=== PATIENT | female | born 1995 | race Caucasian/White ===

== ENCOUNTER 2019-06-20 18:15 | Inpatient (IN) | payer MEDICARE, MEDICAID, SELFPAY ==
--- NOTE | ~2019-06-20 | XR_ITS ---
EXAMINATION: XR femur LT min 2V, XR tibia fibula LT 2V DATE: 06/20/2019 20:52 INDICATION: Left lower leg and knee pain post fall TECHNIQUE: 1. Overlapping proximal and distal, AP and lateral views of the left femur were obtained. 2. AP and lateral views of the left tibia and fibula were obtained. COMPARISON: None FINDINGS: The proximal left femur at the left hip is obscured due to patient body habitus but appeared unremark able in the prior CT of the pelvis. Bone alignment is normal. No fracture. Joint spaces appear unrem arkable. No knee or ankle joint effusions. Subcutaneous edema, skin thickening and numerous dystrophi c soft tissue calcifications along the anterior medial aspect of the lower leg which can be seen with chronic venous stasis. IMPRESSION: No acute osseous abnormality at the left upper or lower leg. Reviewed, dictated and finalized at location A. ORTHINESS INSPECTOR IMPRESSION: No acute osseous abnormality at the left upper or lower leg.
--- NOTE | ~2019-06-20 | XR_ITS ---
EXAMINATION: XR chest 2V DATE: 06/23/2019 13:24 INDICATION: Elevated BNP TECHNIQUE: Frontal and lateral views of the chest are obtained COMPARISON: 06/19/2010 FINDINGS: The lungs are free of acute opacities. There is no pleural effusion or pneumothorax. Cardio megaly is noted. There is mild thoracic spondylosis. IMPRESSION: 1. Cardiomegaly. Reviewed, dictated and finalized at location A. ORDER SCHEDULER IMPRESSION: 1. Cardiomegaly.
--- NOTE | ~2019-06-20 | CT_ITS ---
EXAMINATION: CT pelvis wo con DATE: 06/20/2019 20:52 INDICATION: Left leg pain post fall TECHNIQUE: High resolution computed tomography (CT) of the pelvis was performed without intravenous c ontrast. Additional sagittal and coronal reconstructions were performed. Automated exposure control a nd iterative reconstruction technique were employed. The dose-length product was 1347.57 mGy-cm. COMPARISON: None FINDINGS: Chronic fractures at the posterior right 11th and bilateral 12th ribs. No other fractures identified. Evaluation of fine bone detail and sensitivity for nondisplaced fracture in the abdomen and pelvis i s however mildly limited by quantum mottle resulting from patient body habitus. Mild lumbar dextrocur vature. Vertebral body and disc heights are normal. Bilateral hip and sacroiliac joint spaces are nor mal. T-shaped IUD appears more caudally positioned than typical within the lower uterine segment of t he anteverted uterus. Gallbladder, bilateral kidneys and visualized portions of the liver, spleen, pa ncreas and bilateral adrenal glands are normal. Bowels are unremarkable. Extensive body wall edema th roughout the abdomen and pelvis. IMPRESSION: 1. No evident acute osseous abnormality. Sensitivity for nondisplaced fracture mildly decreased by qu antum mottle resulting from patient body habitus. 2. IUD which appears more caudally positioned than typical within the lower uterine segment. Reviewed, dictated and finalized at location A. RY SALES CLERK IMPRESSION: 1. No evident acute osseous abnormality. Sensitivity for nondisplaced fracture mildly decreased by quantum mottle resulting from patient body habitus. 2. IUD which appears more caudally positioned than typical within the lower oskar rine segment.
--- NOTE | 2019-06-20 18:33 | ED.FALL ---
HPI - Fall General Chief Complaint: Extremity Injury, Lower Stated Complaint: AMB Time Seen by Provider: 06/20/19 18:20 Source: patient Mode of arrival: ambulatory Limitations: no limitations History of Present Illness HPI Narrative: 24-year-old woman comes in by EMS today complaining of left leg pain. She states that she slipped on the ice and fell. She does not know how long she was lying there. She denies numbness or tingling. She denies loss of consciousness, head injury or arm or right leg pain. Related Data Home Medications Medication Instructions Recorded Confirmed albuterol sulfate 2 puff INHALATION Q4-6H PRN 06/20/19 06/20/19 amlodipine 10 mg PO DAILY 06/20/19 06/20/19 desmopressin 0.5 mg PO BID 06/20/19 06/20/19 ergocalciferol (vitamin D2) 50,000 unit PO 2XW 06/20/19 06/20/19 insulin aspart U-100 [Novolog 12 unit SUBCUT TIDWM 06/20/19 06/20/19 Flexpen U-100 Insulin] insulin glargine [Lantus Solostar 20 unit SUBCUT BID 06/20/19 06/20/19 U-100 Insulin] levothyroxine 125 mcg PO DAILY 06/20/19 06/20/19 levothyroxine 300 mcg PO DAILY 06/20/19 06/20/19 lisinopril 40 mg PO DAILY 06/20/19 06/20/19 mifepristone [Korlym] 300 mg PO DAILY 06/20/19 06/20/19 potassium chloride 20 meq PO BID 06/20/19 06/20/19 rosuvastatin 40 mg PO DAILY 06/20/19 06/20/19 sumatriptan succinate 25 mg PO PRN PRN 06/20/19 06/20/19 torsemide 40 mg PO DAILY 06/20/19 06/20/19 Allergies Allergy/AdvReac Type Severity Reaction Status Date / Time ceftriaxone [From Rocephin] Allergy Severe Other Verified 06/20/19 19:23 linezolid Allergy Unknown Other Verified 06/20/19 19:23 vancomycin Allergy Unknown Other Verified 06/20/19 19:23 Review of Systems Constitutional: Constitutional: Denies chills, Denies fever(s) and Reports weakness ENT: Denies dysphagia, Denies nasal congestion and Denies sore throat Cardiovascular: Cardiovascular: Denies chest pain and Denies radiating jaw, neck or arm pain Respiratory: Respiratory: Denies cough, Denies dyspnea and Denies wheezing Gastrointestinal: Gastrointestinal: Denies abdominal pain, Denies diarrhea, Denies nausea and Denies vomiting Genitourinary: Genitourinary: Denies hematuria and Denies dysuria Integumentary/Breasts: Skin/Breast: Denies pruritus, Denies erythema and Denies rash Neurologic: Denies vertigo, Denies dizziness and Denies syncope Hematologic/Lymphatic: Hematologic/Lymphatic: Denies easy bleeding and Denies easy bruising Allergic/Immunologic: Allergic/Immunologic: Denies lip swelling and Denies wheezing PMFSH Past Medical History Medical History (Updated 06/20/19 @ 21:24 by Ricco Santamaria MD) Bipolar 1 disorder CHF (congestive heart failure) COPD (chronic obstructive pulmonary disease) [place] disease Hypertension Hypopituitarism Hypothyroidism Lymphedema of both lower extremities Migraine Obesity On home oxygen therapy Osteomyelitis right leg Type 2 diabetes mellitus Surgical History Surgical History History of abdominal surgery Monsectomy per patient History of hypophysectomy x 2 S/P panniculectomy S/P tonsillectomy and adenoidectomy Status post incision and drainage Right leg abscess and osteomyelitis Social History Social History Smoking status: Former smoker Alcohol intake: never Substance use: never Living arrangements: with family Exam Const: General: healthy appearing and alert Nutritional Appearance: obese Orientation/consciousness: patient oriented x3 Other: moderate acute pain distress Resp: Effort & Inspection: normal respiratory effort Auscultation: clear to auscultation bilaterally, no rales, no rhonchi and no wheezes Cardio: Rate: regular rate Rhythm: regular rhythm Heart sounds: no murmurs GI: Inspection: non-distended Auscultation: normal bowel sounds Other: No tenderness Skin: General skin exam: nor
[2019-06-20 18:35] VITALS: BP 190/104; PULSE 101; RESP 20; TEMP 36.5; O2SAT 95
[2019-06-20 19:07] LABS: Basophils Absolute Auto 0.03 K/mm3 (0.00-0.10); Basophils Percent Auto 0.3 % (0.0-1.0); Eosinophils Absolute Auto 0.05 K/mm3 (0.02-0.50); Eosinophils Percent Auto 0.5 % (1.0-6.0); Hematocrit 44.2 % (35.0-49.0); Hemoglobin 12.7 g/dL (12.0-15.0); Immature Granulocyte Absolute 0.04 K/mm3 (0.00-0.00); Immature Granulocyte Percent A 0.4 % (0.0-0.0); Lymphocytes Absolute Auto 0.83 K/mm3 (1.10-4.50); Lymphocytes Percent Auto 8.1 % (18.0-42.0); Mean Corpuscular HGB Conc 28.7 g/dL (32.0-36.0); Mean Corpuscular Hemoglobin 26.1 pg (27.0-31.0); Mean Corpuscular Volume 90.9 fL (78.0-102.0); Mean Platelet Volume 10.7 fl (9.2-11.8); Monocytes Absolute Auto 0.46 K/mm3 (0.10-0.90); Monocytes Percent Auto 4.5 % (2.0-11.0); Neutrophils Absolute Auto 8.8 K/mm3 (1.7-7.2); Neutrophils Percent Auto 86.2 % (50.0-70.0); Platelet Count Result 280 K/mm3 (150-420); Red Blood Count 4.86 M/mm3 (4.20-5.40); Red Cell Distribution Width 16.9 % (11.6-14.4); White Blood Count 10.2 K/mm3 (4.8-10.8)
[2019-06-20] MEDS: ONDANSETRON INJ 4 MG/2 ML VIAL IV PUSH (19:07)
[2019-06-20] MEDS: HYDROMORPHONE HCL 2 MG/ML VIAL 0.5 MG IV PUSH ×2 (19:08→19:59)
[2019-06-20 19:44] LABS: Alanine Aminotransferase 7 U/L (14-59); Albumin Level 3.4 g/dL (3.4-5.0); Alkaline Phosphatase 108 U/L (46-116); Anion Gap 6.3 mmol/L (7-16); Aspartate Amino Transferase 15 U/L (15-37); Bilirubin,Total 1.5 mg/dL (0.00-1.00); Blood Urea Nitrogen 4 mg/dL (7-18); Calcium 8.6 mg/dL (8.5-10.1); Carbon Dioxide 44 mmol/L (21-32); Chloride 102 mmol/L (98-108); Creatine Kinase 124 U/L (26-192); Estimated CRCL calculation 130 ml/min; Estimated Glomerular Filt Rate > 60; Glucose 387 mg/dL (70-99); Osmolality Calculated 322 mOsm/kg (285-295); Sodium 150 mmol/L (136-145)
[2019-06-20 19:49] LABS: Potassium 2.3 mmol/L (3.5-5.1)
--- NOTE | 2019-06-20 19:49 | PC.NURSE ---
K+ 2.[address] Santamaria aware.
[2019-06-20 19:50] LABS: BNP 782 pg/mL (0-100)
[2019-06-20 19:50] LABS: Beta HCG Quantitative < 1.00 mIU/mL (0-6)
[2019-06-20 19:53] LABS: Appearance Urine Clear (Clear); Bilirubin Urine Negative (Negative); Color Urine Yellow (Yellow); Glucose Urine UA 3+ (Negative); Ketones Urine Negative (Negative); Leukocyte Esterase Ur Negative (Negative); Nitrate Urine Negative (Negative); Protein Urine Trace (Negative); Urobilinogen Urine 0.2 mg/dL (0.2-1.0); pH Urine 7.5 (5.0-8.0)
[2019-06-20 19:58] LABS: Add Urine Microscopic? YES; Blood Urine Trace (Negative)
[2019-06-20 19:59] LABS: Bacteria Urine Trace /hpf; RBC Urine 0-2 /hpf (0-2); Squamous Epithelial Cell Urine Rare /hpf (Few); WBC Urine 0-3 /hpf (0-3)
[2019-06-20 20:01] VITALS: BP 184/99
[2019-06-20 20:43] VITALS: PULSE 80; RESP 20; O2SAT 100
--- NOTE | 2019-06-20 21:18 | ECG_ITS ---
Measurements Intervals [place] Rate: 84 P: 33 RI: 179 QRS: -54 QRSD: 173 T: -3 QT: 460 QTc: 547 Interpretive Statements SINUS RHYTHM RIGHT BUNDLE BRANCH BLOCK LEFT ANTERIOR FASCICULAR BLOCK ABNORMAL ECG Electronically Signed On 06-21-2019 10:31:24 LICENSED CHEMICAL SPRAY TECHNICIAN by Brown Barton D.O.
--- NOTE | 2019-06-20 21:20 | PC.NURSE ---
Dr Santamaria at bedside.
[2019-06-20 21:32] VITALS: BP 186/96; PULSE 83; RESP 20; O2SAT 100
--- NOTE | 2019-06-20 21:33 | PC.NURSE ---
Pt and family aware of plan for admission. Verbalize understanding. Pt's mother left taking pt's belongings with her.
[2019-06-20 21:45] VITALS: PULSE 83
[2019-06-20] MEDS: KCL 20 MEQ/SW 100 ML 100 ML 25 MEQ IVPB (21:51)
--- NOTE | 2019-06-20 21:52 | PC.NURSE ---
Placed on CM, SR 81. KCL infusion started, infusing at 25ml/hr (5meq/hr) d/t c/o burning.
[2019-06-20 22:07] VITALS: BP 176/90; PULSE 84; RESP 20; O2SAT 100
[2019-06-20 22:08] LABS: Magnesium 1.6 mg/dL (1.8-2.4); Phosphorus 2.2 mg/dL (2.6-4.7)
[2019-06-20 22:24] LABS: Potassium Urine Random 5.6 mmol/L (12-62)
[2019-06-20 23:51] VITALS: BMI 73.0
[2019-06-21] VITALS (9 sets, daily range): BP systolic 96–177; BP diastolic 49–93; PULSE 71–98; RESP 18–20; TEMP 36.1–36.8; O2SAT 94–98
--- NOTE | 2019-06-21 00:37 | PC.NURSE ---
Raciel duggan from ER .Pt on o2 @ 2L per nc. Uses o2 @ home @ 2LPt was up to BSC using walker, assist of one. Pt voided lg amt.
--- NOTE | 2019-06-21 00:44 | PC.NURSE ---
Telemetry sinus rythum.
--- NOTE | 2019-06-21 01:25 | PC.NURSE ---
K rider infusion ended @ this time.
[2019-06-21] MEDS: MAGNESIUM SULF 2 GM/WATER 50ML 2 GM/50 ML BAG IVPB (01:38)
--- NOTE | 2019-06-21 02:08 | PC.NURSE ---
Mag rider continues. Pt voided lg amt in BSC..Assisted with legs back into bed.
[2019-06-21] MEDS: SODIUM CHLORIDE 0.45% 1,000 ML 75 ML IV CONT (03:05)
--- NOTE | 2019-06-21 03:12 | PC.NURSE ---
0.45 NS up @ 75 ml hr @ this time.
--- NOTE | 2019-06-21 03:24 | PC.NURSE ---
Sleeping, awakened for IV fluids. VS taken. O2 continues.
--- NOTE | 2019-06-21 03:31 | PC.NURSE ---
Reji Jennings called to clarify medication dosages and availability of certain medications.
[2019-06-21 05:23] LABS: Basophils Absolute Auto 0.03 K/mm3 (0.00-0.10); Basophils Percent Auto 0.4 % (0.0-1.0); Eosinophils Absolute Auto 0.03 K/mm3 (0.02-0.50); Eosinophils Percent Auto 0.4 % (1.0-6.0); Hemoglobin 10.1 g/dL (12.0-15.0); Immature Granulocyte Absolute 0.03 K/mm3 (0.00-0.00); Immature Granulocyte Percent A 0.4 % (0.0-0.0); Lymphocytes Absolute Auto 0.74 K/mm3 (1.10-4.50); Lymphocytes Percent Auto 10.5 % (18.0-42.0); Mean Corpuscular HGB Conc 28.9 g/dL (32.0-36.0); Mean Corpuscular Hemoglobin 26.9 pg (27.0-31.0); Mean Corpuscular Volume 93.1 fL (78.0-102.0); Mean Platelet Volume 10.5 fl (9.2-11.8); Monocytes Absolute Auto 0.43 K/mm3 (0.10-0.90); Monocytes Percent Auto 6.1 % (2.0-11.0); Neutrophils Absolute Auto 5.8 K/mm3 (1.7-7.2); Neutrophils Percent Auto 82.2 % (50.0-70.0); Platelet Count Result 244 K/mm3 (150-420); Red Blood Count 3.76 M/mm3 (4.20-5.40)
[2019-06-21 05:41] LABS: Albumin Level 2.7 g/dL (3.4-5.0); Alkaline Phosphatase 88 U/L (46-116); Aspartate Amino Transferase 16 U/L (15-37); Bilirubin,Total 1.1 mg/dL (0.00-1.00); Blood Urea Nitrogen 3 mg/dL (7-18); Calcium 7.8 mg/dL (8.5-10.1); Chloride 107 mmol/L (98-108); Estimated CRCL calculation 152 ml/min; Estimated Glomerular Filt Rate > 60; Glucose 341 mg/dL (70-99); Total Protein 5.6 g/dL (6.4-8.2)
[2019-06-21 05:52] LABS: Alanine Aminotransferase 6 U/L (14-59); Osmolality Calculated 323 mOsm/kg (285-295); Sodium 152 mmol/L (136-145)
[2019-06-21 05:53] LABS: Magnesium 1.9 mg/dL (1.8-2.4)
[2019-06-21 05:55] LABS: Anion Gap 2.39999 mmol/L (7-16); Carbon Dioxide > 45 mmol/L (21-32); Potassium 2.4 mmol/L (3.5-5.1)
[2019-06-21] MEDS: LEVOTHYROXINE SODIUM 100 MCG TABLET 425 MCG PO (06:42)
--- NOTE | 2019-06-21 06:52 | PC.NURSE ---
0610 Dr. Santamaria notified of pt's critical lab value. New order received and noted.
--- NOTE | 2019-06-21 06:57 | PC.NURSE ---
Potassium Miles bag #1 up @ this time per order. Pt getting up to BSC to void. Help with legs back into bed.
[2019-06-21] MEDS: KCL 20 MEQ/SW 100 ML 100 ML 50 MEQ IVPB ×2 (07:00→09:01)
--- NOTE | 2019-06-21 07:03 | PC.NURSE ---
potassium rider infusing, site clear
[2019-06-21 08:03] LABS: Glucose Point of Care 316 (65-105)
[2019-06-21] MEDS: POTASSIUM CHLORIDE 20 MEQ TABLET 40 MEQ PO ×2 (08:43→17:16)
[2019-06-21] MEDS: ENOXAPARIN 40 MG/0.4 ML SYRINGE SUB-Q (08:43)
[2019-06-21] MEDS: lisinopriL 20 MG TABLET 40 MG PO (08:44)
[2019-06-21] MEDS: ROSUVASTATIN 10 MG TABLET 40 MG PO (08:44)
[2019-06-21] MEDS: MAGNESIUM OXIDE 400 MG TABLET PO (08:45)
[2019-06-21] MEDS: AMLODIPINE BESYLATE 5 MG TABLET 10 MG PO (08:45)
--- NOTE | 2019-06-21 09:00 | PC.NURSE ---
K rider continues to infuse, ate well for breakfast
[2019-06-21] MEDS: HYDROCORTISONE 10 MG TABLET 100 MG PO (09:06)
[2019-06-21] MEDS: INSULIN GLARGINE (*BKC) 100 UNITS/ML 20 UNITS SUB-Q (09:11)
--- NOTE | 2019-06-21 10:32 | PC.NURSE ---
due to leg edema needs assist to move legs, does use over head trapeze to assist in turning and moving in bed, mom brought home medications in and sent to pharmacy for verification, k rider infusing
[2019-06-21] MEDS: POTASSIUM PHOS,M-BASIC-D-BASIC 40 MMOL in SODIUM CHLORIDE 0.9% IV 250 ML 62.5 MMOL IVPB (10:59)
--- NOTE | 2019-06-21 11:10 | PC.NURSE ---
potassium phosphorus infusion begun, resting in bed, denies needs
--- NOTE | 2019-06-21 11:33 | PC.NURSE ---
patient got self up and out of bed, used walker to stable her gait and did pivot transfer on own from bed to commode then to chair, used 2 assist to get recliner chair to legs elevated position, call light in reach
[2019-06-21 12:08] LABS: Glucose Point of Care 319 (65-105)
--- NOTE | 2019-06-21 12:19 | PC.NURSE ---
in chair eating lunch, administered own insulin with own pen from home, IV site burning and slight edema noted, no redness, discontinued and new access started to left antecubital space, fluids and potassium phosphate continue at this time
--- NOTE | 2019-06-21 12:28 | PM.IMHP ---
H&P: HPI History of Present Illness Chief complaint: AMB Narrative: Rosa Sullivan is a 24 year old female That presented to ED with left lower leg the pain post fall. Patient has past medical history of congestive heart failure, COPD, Syeda's disease, hypertension, hypopituitary is [place], hypothyroidism, lymphedema of both lower extremities, migraines, obesity, continue his home oxygen, osteomyelitis of the right leg and type 2 diabetes mellitus. According to the patient yesterday she was attempting to go in her home via ramp and fell on ice. Her mother attempted to stand her up and was unable to. Patient was The ground greater than 45 minutes . EMS was called and patient was transported to e.d.. While in the emergency room patient was given Mag supplement riders for a Mag of 1.6, p.o. potassium, potassium phosphate and a KCl rider for a potassium of 2.3 and a phosphorus of 2.2. Vital signs are 36.4, 82, 18, 95% on 2 L nasal cannula blood pressure 180/70. Imaging of the tibial fibula and femur were negative for fracture. Patient does have a history of cellulitis, patient's left lower extremity is edematous, warm and tender to touch, and erythematous. Patient denies SOB, CP, palpitation, extremity numbness, lightheadness, dizziness, constipation, diarrhea, or chills or fever. patient's calender operator Dr. Morse records have been requested from [facility] to clear by diagnosis and medication. Review of Systems Constitutional: Constitutional: Denies chills, Reports fatigue and Denies fever(s) Cardiovascular: Cardiovascular: Denies chest pain, Denies chest pain at rest, Reports pedal edema ( left lower extremity), Denies lightheadedness and Denies dyspnea Respiratory: Respiratory: Denies chest congestion, Denies cough, Denies pain with cough, Denies dyspnea, Denies wheezing and Reports other ( uses continuous home O2) Gastrointestinal: Gastrointestinal: Denies change in bowel habits, Denies constipation, Denies GI cramping, Denies excessive flatus, Denies heartburn, Denies diarrhea, Denies nausea and Denies vomiting Genitourinary: Genitourinary: Denies hematuria Musculoskeletal: Musculoskeletal: Reports arthralgias ( left lower extremity), Reports joint swelling ( left lower extremity), Denies neck pain, Denies numbness, Denies stiffness and Denies tingling Integumentary/Breasts: Skin/Breast: Reports swelling ( left lower extremity), Reports erythema ( left lower extremity and abdomen) and Reports other ( history of cellulitis to lower extremities) Neurologic: Denies confusion, Denies vertigo, Denies dizziness, Denies syncope, Denies numbness and Denies weakness Psychiatric: Psychiatric: Reports no additional psychiatric complaints and Denies anxiety PMFSH Past Medical History Medical History (Updated 06/21/19 @ 13:33 by CLEVELAND Robertson-C) Bipolar 1 disorder CHF (congestive heart failure) COPD (chronic obstructive pulmonary disease) [place] disease Hypertension Hypopituitarism Hypothyroidism Lymphedema of both lower extremities Migraine Obesity On home oxygen therapy Osteomyelitis right leg Type 2 diabetes mellitus Surgical History Surgical History History of abdominal surgery Monsectomy per patient History of hypophysectomy x 2 S/P panniculectomy S/P tonsillectomy and adenoidectomy Status post incision and drainage Right leg abscess and osteomyelitis Family History Family History (Updated 06/20/19 @ 23:51 by Viki Herron LPN) Mother Cerebrovascular accident Social History Social History Smoking status: Never smoker Second hand tobacco smoke exposure: Yes Alcohol intake: never Substance use: never Substance use type: does not use Living arrangements: with family Gender identity (if verbalized by the patient): Female Spiritual care concerns: No Agr
--- NOTE | 2019-06-21 13:00 | PC.NURSE ---
In chair, fluids infusing with potassium phosphate, denies needs, coloring in adult color book
--- NOTE | 2019-06-21 14:10 | PC.NURSE ---
Assisted back to bed from chair, denies need to void, able to get to standing position and take steps from chair to bed, did need assist to pull self up to top of bed, maxi slide used, tolerated well, 2 person assist needed, telemetry SR,
--- NOTE | 2019-06-21 15:00 | PC.NURSE ---
Resting in bed, using trapeze to adjust self in bed, call light in reach and taking oral fluids well, saline lock discontinued due to infiltration, lack of IV site to pick from, will not stick again until evening lab completed, abx changed to oral, awaiting pharmacy approval
--- NOTE | 2019-06-21 16:00 | PCDIET ---
Napping at intervals, able to use call light and drinks orally without issues, uses phone for games
--- NOTE | 2019-06-21 17:00 | PC.NURSE ---
Wants to remain in bed for dinner, denies need to void, lab to draw for repeat potassium and phosphate levels, awaiting results,
[2019-06-21 17:02] LABS: Glucose Point of Care 107 (65-105)
[2019-06-21] MEDS: CLINDAMYCIN HCL 150 MG CAP 450 MG PO (17:16)
[2019-06-21 17:31] LABS: Phosphorus 3.3 mg/dL (2.6-4.7)
[2019-06-21 17:39] LABS: Anion Gap 7.2 mmol/L (7-16); Blood Urea Nitrogen 5 mg/dL (7-18); Calcium 8.3 mg/dL (8.5-10.1); Carbon Dioxide 40 mmol/L (21-32); Chloride 105 mmol/L (98-108); Estimated CRCL calculation 135 ml/min; Estimated Glomerular Filt Rate > 60; Glucose 79 mg/dL (70-99); Osmolality Calculated 304 mOsm/kg (285-295); Potassium 3.2 mmol/L (3.5-5.1); Sodium 149 mmol/L (136-145)
--- NOTE | 2019-06-21 17:48 | PC.NURSE ---
potassium level resulted, 3.2
--- NOTE | 2019-06-21 17:49 | PC.NURSE ---
notitied of current lab results. No new orders received.
--- NOTE | 2019-06-21 18:28 | PC.NURSE ---
Remains in chair at this time, telemetry sinus rhythm, no new orders at this time
--- NOTE | 2019-06-21 19:20 | PC.NURSE ---
pt sitting in chair sleeping, easily aroused, denies any pain, belongings and call light within reach.
--- NOTE | 2019-06-21 20:00 | PC.NURSE ---
pt assisted with recliner x2 staff, pt then using walker was able to ambulate to bed with contact guard assist, assisted pt with her legs into the bed then maxi slide, trapeze bar, and 2 assist to move up in bed. pt tolerated well all belongings and call light within reach.
[2019-06-21] MEDS: DOCUSATE SODIUM 100 MG CAPSULE PO (21:08)
[2019-06-21] MEDS: DESMOPRESSIN ACETATE 0.1 MG TABLET 0.5 MG PO (21:09)
--- NOTE | 2019-06-21 21:15 | PC.NURSE ---
pt has low blood glucose level of 53, hypoglycemia protocol followed, ticket broker notified
[2019-06-21 21:25] LABS: Glucose Point of Care 53 (65-105)
[2019-06-21 21:56] LABS: Glucose Point of Care 65 (65-105)
[2019-06-21 21:56] LABS: Glucose Point of Care 83 (65-105)
--- NOTE | 2019-06-21 22:00 | PC.NURSE ---
pt finished eating peanut butter and arnulfo crackers, reports feeling much better now, remains in bed, denies need to use bsc, belongings and call light within reach
--- NOTE | 2019-06-21 23:19 | PC.NURSE ---
pt sleeping, respirations even and regular, no evidence of distress noted, call light and belongings within reach
[2019-06-22] VITALS (7 sets, daily range): BP systolic 96–133; BP diastolic 37–75; PULSE 69–81; RESP 18–20; TEMP 36.4–37; O2SAT 96–100
[2019-06-22] MEDS: CLINDAMYCIN HCL 150 MG CAP 450 MG PO ×5 (00:30→23:36)
--- NOTE | 2019-06-22 00:31 | PC.NURSE ---
pt placed on hover mat to assist with pt repositioning, 2 staff repositioned pt to right side, pt tolerated well, denies any other needs at this time, belongings and call light within reach
[2019-06-22 00:59] LABS: Glucose Point of Care 82 (65-105)
--- NOTE | 2019-06-22 02:14 | PC.NURSE ---
pt given saltine crackers and diet white soda for heartburn, advised if this doesn't help I could contact ERP for medication.
--- NOTE | 2019-06-22 03:05 | PC.NURSE ---
pt sleeping, respirations even and regular, no evidence of distress noted, call light and belongings within reach
--- NOTE | 2019-06-22 04:35 | PC.NURSE ---
pt vital signs obtained, lab at bedside, pt denies need to void, denies any other needs at this time
--- NOTE | 2019-06-22 05:20 | PC.NURSE ---
pt sleeping, respirations even and regular, no evidence of distress noted, call light and belongings within reach
[2019-06-22 05:36] LABS: Hematocrit 33.3 % (35.0-49.0); Hemoglobin 9.5 g/dL (12.0-15.0); Mean Corpuscular HGB Conc 28.5 g/dL (32.0-36.0); Mean Corpuscular Hemoglobin 26.7 pg (27.0-31.0); Mean Corpuscular Volume 93.5 fL (78.0-102.0); Mean Platelet Volume 10.9 fl (9.2-11.8); Platelet Count Result 295 K/mm3 (150-420); Red Blood Count 3.56 M/mm3 (4.20-5.40); Red Cell Distribution Width 17.3 % (11.6-14.4); White Blood Count 7.2 K/mm3 (4.8-10.8)
[2019-06-22 05:48] LABS: Blood Urea Nitrogen 7 mg/dL (7-18); Calcium 7.7 mg/dL (8.5-10.1); Carbon Dioxide 43 mmol/L (21-32); Chloride 107 mmol/L (98-108); Estimated CRCL calculation 120 ml/min; Estimated Glomerular Filt Rate 60; Glucose 88 mg/dL (70-99); Osmolality Calculated 309 mOsm/kg (285-295); Sodium 151 mmol/L (136-145)
[2019-06-22 05:51] LABS: Magnesium 1.9 mg/dL (1.8-2.4); Phosphorus 3.8 mg/dL (2.6-4.7)
[2019-06-22 05:55] LABS: D Dimer 0.37 mg/L (0.19-0.50)
[2019-06-22 05:58] LABS: BNP 238 pg/mL (0-100)
[2019-06-22] MEDS: LEVOTHYROXINE SODIUM 25 MCG TABLET PO (06:06)
[2019-06-22] MEDS: LEVOTHYROXINE SODIUM 100 MCG TABLET PO (06:07)
[2019-06-22 06:09] LABS: CRP 4.2 mg/dL (0.0-0.9)
--- NOTE | 2019-06-22 06:20 | PC.NURSE ---
pt assisted with walker, gait belt, 2 staff to bsc, then to standing scale, then to recliner, pt tolerated well, participated really well and only required contact guard after initially standing up.
--- NOTE | 2019-06-22 07:08 | PC.NURSE ---
In chair at this time, call light in reach, taking po fluids well
--- NOTE | 2019-06-22 07:15 | PCDIET ---
In chair, coloring, potassium level this am 3.0, no IV access at this time, taking oral fluids well, not urinating much, no change in appearance of left knee, bruising continues
[2019-06-22 07:31] LABS: Glucose Point of Care 89 (65-105)
--- NOTE | 2019-06-22 08:00 | PC.NURSE ---
Sitting in chair, eating breakfast, denies needs, takes po fluids well, scheduled for oral potassium at 0900
[2019-06-22] MEDS: INSULIN GLARGINE (*BKC) 100 UNITS/ML 20 UNITS SUB-Q (09:04)
[2019-06-22] MEDS: POTASSIUM CHLORIDE 20 MEQ PACKET (FOR LIQUID) 40 MEQ PO (09:04)
[2019-06-22] MEDS: CALCIUM CARBONATE (OSCAL) 500 MG TABLET PO (09:05)
[2019-06-22] MEDS: hydrALAZINE 5 MG TABLET PO (09:05)
[2019-06-22] MEDS: ROSUVASTATIN 10 MG TABLET 40 MG PO (09:06)
[2019-06-22] MEDS: DESMOPRESSIN ACETATE 0.1 MG TABLET 0.5 MG PO ×2 (09:07→21:00)
[2019-06-22] MEDS: AMLODIPINE BESYLATE 5 MG TABLET 10 MG PO (09:08)
[2019-06-22] MEDS: lisinopriL 20 MG TABLET 40 MG PO (09:08)
[2019-06-22] MEDS: POTASSIUM CHLORIDE 20 MEQ TABLET 40 MEQ PO ×2 (09:09→17:14)
[2019-06-22] MEDS: DOCUSATE SODIUM 100 MG CAPSULE PO ×2 (09:09→21:00)
[2019-06-22] MEDS: MAGNESIUM OXIDE 400 MG TABLET PO (09:09)
--- NOTE | 2019-06-22 09:40 | PC.NURSE ---
Stand by assist and use of walker, ambulatory to bathroom
[2019-06-22] MEDS: SPIRONOLACTONE 25 MG TABLET 50 MG PO (10:04)
--- NOTE | 2019-06-22 10:10 | PC.NURSE ---
Sitting on edge of bed, assisted in washing up, assisted to lay down, hover mat used for ease in lifting patient up in bed
--- NOTE | 2019-06-22 10:20 | P.PNCROSS_ITS ---
Event Note Event Note Event Note: Event note pertains to visit on 06/22/2019 For this patient encounter, I reviewed the KITCHEN AND COUNTER WORKER or PA documentation, treatment plan, and medical decision making; and I had [id number] time with this patient.\ Pt. with Cushingoid features, marked obesity. Has trouble walking far even with use of walker. Tender, red panus and left leg. Hypokalemia difficult to raise, loop diuretic likely contributing. Agree with continuing clindamycin, stopping loop diuretic, starting spironolact one, continuing potassium supplementation, and starting PT. Pt may need to be fully admitted; hospital management is indicated.
--- NOTE | 2019-06-22 11:10 | PC.NURSE ---
In bed with HOB elevated for comfort, legs elevated, denies needs at this time, pain medication working, knee continues to have some edema and bruising, no change in redness from yesterday noted, panus of abdomen is also red and edematous, states is not as swollen as it has been last couple days
[2019-06-22] MEDS: ERGOCALCIFEROL 50,000 UNIT CAPSULE 50000 UNITS PO (11:36)
[2019-06-22 11:41] LABS: Glucose Point of Care 105 (65-105)
--- NOTE | 2019-06-22 12:08 | PC.NURSE ---
eating lunch, no n/v, telemetry sr,
[2019-06-22 12:44] LABS: Albumin Level 2.8 g/dL (3.4-5.0)
--- NOTE | 2019-06-22 13:07 | PC.NURSE ---
sitting in bed, states having heart burn from clindamycin, notified
[2019-06-22] MEDS: CALCIUM CARBONATE (TUMS) 500 MG (200 MG ELEMENTAL) PO (13:16)
[2019-06-22] MEDS: PANTOPRAZOLE 40 MG TABLET PO ×2 (13:17→21:00)
--- NOTE | 2019-06-22 14:57 | PM.IMPN ---
Progress Note: A&P Assessment and Plan (1) Status post fall: Code(s): Z91.81 - History of falling <Luis HowellCLEVELAND See-C - Last Filed: 06/22/19 15:06> Status: Acute <Luis CisnerosCLEVELAND-C - Last Filed: 06/22/19 15:06> Assessment and Plan: - possibly is secondary to electrolyte imbalance vs cellulite - will correct the underlining condition. - consulted PT/OT <CLEVELAND Robertson-C - Last Filed: 06/22/19 15:06> (2) Cellulitis: Code(s): L03.90 - Cellulitis, unspecified <Ernestolilian LyndaCLEVELAND See-C - Last Filed: 06/22/19 15:06> Status: Acute <Ernestolilian LyndaCLEVELAND See-C - Last Filed: 06/22/19 15:06> Assessment and Plan: - patient has a history of cellulitis - D-dimer within normal limits - continue clindamycin - CRP elevated - repeat CBC BMP in a.m. - erythema outline to monitor site, has not worsened - patient WBC within normal limits will recheck in the a.m. <ErnestoCLEVELAND Escamilla-C - Last Filed: 06/22/19 15:06> (3) Hypokalemia: Code(s): E87.6 - Hypokalemia <Ernestolilian LyndaCLEVELAND See-C - Last Filed: 06/22/19 15:06> Status: Acute <CLEVELAND Robertson-C - Last Filed: 06/22/19 15:06> Assessment and Plan: - remain decreased 3.0 - patient given K rider and potassium supplements, will replace as needed. - repeat BMP in a.m. <CLEVELAND Robertson-C - Last Filed: 06/22/19 15:06> (4) Contusion of left knee and lower leg: Qualifiers: Encounter type: initial encounter Qualified Code(s): S80.02XA - Contusion of left knee, initial encounter; S80.12XA - Contusion of left lower leg, initial encounter <CLEVELAND Robertson-C - Last Filed: 06/22/19 15:06> Code(s): S80.02XA - Contusion of left knee, initial encounter; S80.12XA - Contusion of left lower leg, initial encounter <ALEXANDREA Robertson - Last Filed: 06/22/19 15:06> Status: Acute <ALEXANDREA Robertson - Last Filed: 06/22/19 15:06> Assessment and Plan: - imaging patient's tibial/fibula and femur negative fracture or dislocation. <ALEXANDREA Robertson - Last Filed: 06/22/19 15:06> (5) On home oxygen therapy: Code(s): Z99.81 - Dependence on supplemental oxygen <ALEXANDREA Robertson - Last Filed: 06/22/19 15:06> Status: Chronic <ALEXANDREA Robertson - Last Filed: 06/22/19 15:06> Assessment and Plan: -continue use of oxygen - keep sats above 90% <ALEXANDREA Robertson - Last Filed: 06/22/19 15:06> (6) COPD (chronic obstructive pulmonary disease): Code(s): J44.9 - Chronic obstructive pulmonary disease, unspecified <ALEXANDREA Robertson - Last Filed: 06/22/19 15:06> Status: Chronic <ALEXANDREA Robertson - Last Filed: 06/22/19 15:06> Assessment and Plan: - stable at this time - continue use of oxygen. - continue nebulizer treatments and inhalers. - will adjust as needed <ALEXANDREA Robertson - Last Filed: 06/22/19 15:06> (7) CHF (congestive heart failure): Code(s): I50.9 - Heart failure, unspecified <ALEXANDREA Robertson - Last Filed: 06/22/19 15:06> Status: Chronic <ALEXANDREA Robertson - Last Filed: 06/22/19 15:06> Assessment and Plan: uncompensated - BMP elevated at 238 - continue to hold torsemide due to electrolyte imbalance. started spironolactone - continue to weigh daily. - will get chest x-ray the a.m. <ALEXANDREA Robertson - Last Filed: 06/22/19 15:06> (8) Obesity: Code(s): E66.9 - Obesity, unspecified <ALEXANDREA Robertson - Last Filed: 06/22/19 15:06> Status: Chronic <ALEXANDREA Robertson - Last Filed: 06/22/19 15:06> Assessment and Plan: -patient educated on healthy lifestyle. - patient unable to get bariatric surgery due to her diagnosis of [place]'s disease. - started physical therapy/occupational therapy <S
--- NOTE | 2019-06-22 15:10 | PC.NURSE ---
Requested assistance to move legs in bed, moved left leg on to pillow and adjusted pillows in patients back for comfort
--- NOTE | 2019-06-22 16:00 | PC.NURSE ---
Telemetry sinus rhythm, napping at intervals
--- NOTE | 2019-06-22 16:30 | PC.NURSE ---
Asleep, opens eyes, falls back to sleep easily, sugar 41, given orange juice and sugar, given peanut butter crackers, more alert after taking juice, able to sit up and eat crackers
--- NOTE | 2019-06-22 17:05 | PC.NURSE ---
More awake and eating dinner at this time, advised would be back at 1730 to check bedside glucose
[2019-06-22 17:24] LABS: Glucose Point of Care 41 (65-105)
[2019-06-22 17:35] LABS: Glucose Point of Care 76 (65-105)
--- NOTE | 2019-06-22 17:35 | PC.NURSE ---
bedside glucose 76, encouraged to finish dinner, encouraged to request a bedtime snack later
--- NOTE | 2019-06-22 18:19 | PC.NURSE ---
PATEINT ADJUSTED BED ON HER OWN AND MOVED TRAY TABLE ON HER OWN, TELEMETRY SR, NO WORSENING PAIN, DENIES NEED TO VOID, HAS VOIDED X1 THIS SHIFT
--- NOTE | 2019-06-22 19:10 | PC.NURSE ---
pt sitting up in bed watching tv, reports pain in left leg, pain medication given see MAR
--- NOTE | 2019-06-22 21:00 | PC.NURSE ---
pt sitting up in bed, denies any pain or needs at this time, belongings and call light within reach
[2019-06-22 21:06] LABS: Glucose Point of Care 93 (65-105)
--- NOTE | 2019-06-22 22:08 | PC.NURSE ---
pt sleeping respirations even and regular, no evidence of distress noted
--- NOTE | 2019-06-22 23:40 | PC.NURSE ---
pt reports she does not need assistance turning at this time and reports no need to void, belongings and call light within reach.
--- NOTE | 2019-06-23 01:40 | PC.NURSE ---
pt assisted with turning, christine kc and 2 staff used, pt able to help turn herself
--- NOTE | 2019-06-23 02:30 | PC.NURSE ---
pt sleeping respirations noted even and regular, no evidence of distress
--- NOTE | 2019-06-23 03:21 | PC.NURSE ---
pt sleeping, no evidence of distress noted, call light and belongings within reach.
[2019-06-23 04:00] VITALS: BP 107/66; PULSE 76; RESP 20; TEMP 37.3; O2SAT 98
--- NOTE | 2019-06-23 04:05 | PC.NURSE ---
pt resting in bed, denies any needs or need to void, pt assisted with repositioning of pillows
[2019-06-23 05:31] LABS: Hematocrit 31.9 % (35.0-49.0); Hemoglobin 9.4 g/dL (12.0-15.0); Mean Corpuscular HGB Conc 29.5 g/dL (32.0-36.0); Mean Corpuscular Hemoglobin 27.1 pg (27.0-31.0); Mean Corpuscular Volume 91.9 fL (78.0-102.0); Mean Platelet Volume 10.6 fl (9.2-11.8); Platelet Count Result 300 K/mm3 (150-420); Red Blood Count 3.47 M/mm3 (4.20-5.40); Red Cell Distribution Width 17.4 % (11.6-14.4); White Blood Count 7.3 K/mm3 (4.8-10.8)
[2019-06-23] MEDS: CLINDAMYCIN HCL 150 MG CAP 450 MG PO ×2 (05:46→12:53)
[2019-06-23] MEDS: LEVOTHYROXINE SODIUM 25 MCG TABLET PO (05:46)
[2019-06-23] MEDS: LEVOTHYROXINE SODIUM 100 MCG TABLET PO (05:47)
[2019-06-23 05:49] LABS: Albumin Level 2.4 g/dL (3.4-5.0); Alkaline Phosphatase 89 U/L (46-116); Anion Gap 2.8 mmol/L (7-16); Aspartate Amino Transferase 26 U/L (15-37); Bilirubin,Total 0.8 mg/dL (0.00-1.00); Blood Urea Nitrogen 12 mg/dL (7-18); Calcium 7.7 mg/dL (8.5-10.1); Carbon Dioxide 43 mmol/L (21-32); Chloride 103 mmol/L (98-108); Estimated CRCL calculation 107 ml/min; Estimated Glomerular Filt Rate 51; Glucose 67 mg/dL (70-99); Osmolality Calculated 297 mOsm/kg (285-295); Potassium 3.8 mmol/L (3.5-5.1); Sodium 145 mmol/L (136-145); Total Protein 5.5 g/dL (6.4-8.2)
[2019-06-23 05:50] LABS: Alanine Aminotransferase < 6 U/L (14-59)
--- NOTE | 2019-06-23 06:12 | PC.NURSE ---
pt given applesauce, lab work glucose reading was 67, pt does not want to get out of bed yet to get weighed or get into recliner.
[2019-06-23 06:29] LABS: BNP 161 pg/mL (0-100)
[2019-06-23 07:53] VITALS: BP 127/78; PULSE 71; PULSE 72; RESP 18; TEMP 36.6; O2SAT 100
--- NOTE | 2019-06-23 07:57 | PC.NURSE ---
Up in chair, breakfast provided, encouraged to eat, noted to have bedside glucose 69
[2019-06-23] MEDS: CALCIUM CARBONATE (OSCAL) 500 MG TABLET PO (08:38)
[2019-06-23] MEDS: AMLODIPINE BESYLATE 5 MG TABLET 10 MG PO (08:40)
[2019-06-23] MEDS: DESMOPRESSIN ACETATE 0.1 MG TABLET 0.5 MG PO (08:41)
[2019-06-23] MEDS: lisinopriL 20 MG TABLET 40 MG PO (08:42)
[2019-06-23] MEDS: MAGNESIUM OXIDE 400 MG TABLET PO (08:42)
[2019-06-23] MEDS: PANTOPRAZOLE 40 MG TABLET PO (08:43)
[2019-06-23] MEDS: ROSUVASTATIN 10 MG TABLET 40 MG PO (08:43)
[2019-06-23] MEDS: POTASSIUM CHLORIDE 20 MEQ TABLET 40 MEQ PO (08:43)
[2019-06-23] MEDS: SPIRONOLACTONE 25 MG TABLET 12.5 MG PO (08:46)
[2019-06-23] MEDS: CALCIUM CARBONATE (TUMS) 500 MG (200 MG ELEMENTAL) PO (09:08)
--- NOTE | 2019-06-23 09:24 | PC.NURSE ---
SBA up from chair and used walker to get to the bed, maxi air aid helped to get patient in center of bed, tolerated well, complaints of heart burn and tums given
--- NOTE | 2019-06-23 10:02 | PC.NURSE ---
Resting in bed, left leg on pillow, is able to move self some, moves self in bed, as well, denies needs at this time, pain some better, indigestion better, no vomiting, ate well for breakfast, cooperative, using call light as needed
--- NOTE | 2019-06-23 11:08 | PC.NURSE ---
In bed with HOB elevated SR on telemetry, taking po fluids well
--- NOTE | 2019-06-23 11:09 | PM.DS ---
DS: Diagnosis Admitting Diagnosis Admitting Diagnosis: History of falling Discharge Diagnosis (1) Status post fall: Code(s): Z91.81 - History of falling Status: Acute Assessment and Plan: - possibly is secondary to electrolyte imbalance vs cellulite - will correct the underlining condition. - CONTINUE OUTPATIENT PT OT (2) Cellulitis: Code(s): L03.90 - Cellulitis, unspecified Status: Acute Assessment and Plan: - patient has a history of cellulitis - D-dimer within normal limits - continue clindamycin (3) Hypokalemia: Code(s): E87.6 - Hypokalemia Status: Acute Assessment and Plan: - WITHIN NORMAL LIMITS ON DISCHARGE. - INSTRUCTED TO CONTINUE MONITORING POTASSIUM LEVEL - PATIENT DIURETICS WHICH TO POTASSIUM-SPARING - PATIENT WILL CONTINUE TO TAKE POTASSIUM SUPPLEMENT FOR 3 DAYS ONLY (4) Contusion of left knee and lower leg: Qualifiers: Encounter type: initial encounter Qualified Code(s): S80.02XA - Contusion of left knee, initial encounter; S80.12XA - Contusion of left lower leg, initial encounter Code(s): S80.02XA - Contusion of left knee, initial encounter; S80.12XA - Contusion of left lower leg, initial encounter Status: Acute Assessment and Plan: - imaging patient's tibial/fibula and femur negative fracture or dislocation. (5) On home oxygen therapy: Code(s): Z99.81 - Dependence on supplemental oxygen Status: Chronic Assessment and Plan: - CONTINUE HOME OXYGEN (6) COPD (chronic obstructive pulmonary disease): Code(s): J44.9 - Chronic obstructive pulmonary disease, unspecified Status: Chronic Assessment and Plan: - stable at this time - continue use of oxygen. - continue nebulizer treatments and inhalers AT HOME (7) CHF (congestive heart failure): Code(s): I50.9 - Heart failure, unspecified Status: Chronic Assessment and Plan: uncompensated - bnp IMPROVED ON DISCHARGE - CONTINUEspironolactone - (8) Obesity: Code(s): E66.9 - Obesity, unspecified Status: Chronic Assessment and Plan: -patient educated on healthy lifestyle. - patient unable to get bariatric surgery due to her diagnosis of Flushing's disease. 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 Morse at [facility]. patient medical record has been requested. - continue Korlym . (10) Type 2 diabetes mellitus: Code(s): E11.9 - Type 2 diabetes mellitus without complications Status: Chronic Assessment and Plan: - CONTINUE HOME MEDICATION (11) Hypopituitarism: Code(s): E23.0 - Hypopituitarism Status: Acute Assessment and Plan: -receiving medical records from [facility] to see if this is not an actual diagnosis for patient. - if this is actual diagnosis patient will be treated accordingly. (12) Hypothyroidism: Code(s): E03.9 - Hypothyroidism, unspecified Status: Chronic Assessment and Plan: - continue levothyroxine 425 mg daily. - follow up with atmospheric scientist and PCP (13) Hypertension: Code(s): I10 - Essential (primary) hypertension Status: Chronic Assessment and Plan: - CONTINUE HOME MEDICATION FOLLOW-UP WITH PCP - continue amlodipine and lisinopril DS: Summary Hospital Course Hospital Course: REFER TO H&P IN DAILY NOTES. PATIENT WITH DISCHARGE HOME TODAY WITH A WALKER. SHE WAS ALSO INSTRUCTED TO TAKE HER POTASSIUM PILLS FOR 3 DAYS ONLY. SHE WILL POSSIBLY NO LONGER NEED POTASSIUM SUPPLEMENTS. THIS HOSPITAL STAY HER DIURETIC WHICH A WAS CHANGED TO POTASSIUM-SPARING DIURETIC DUE TO HYPOKALEMIA. WAS ALSO INSTRUCTED TO FOLLOW-UP WITH HER BREAD STACKER. SHE DOES STILL HAVE LEFT KNEE PAIN POST FALL WITH IMPROVEMENT. SHE WAS INSTRUCTED TO ICE
[2019-06-23 12:00] VITALS: BP 103/57; PULSE 73; RESP 18; TEMP 36.6; O2SAT 98
--- NOTE | 2019-06-23 12:10 | PC.NURSE ---
In bed with HOB elevated eating lunch
--- NOTE | 2019-06-23 13:07 | PC.NURSE ---
Assisted from bed to WC to go down for CXR
--- NOTE | 2019-06-23 14:00 | PC.NURSE ---
Patient returned from radiology, assisted back into bed.
--- NOTE | 2019-06-23 16:00 | PC.NURSE ---
Patient assisted up out of bed to commode.
--- NOTE | 2019-06-23 16:10 | PC.NURSE ---
Patient transferred off commode into [facility]. RN assisted patient to dress. Discharge instructions read and explained to patient and patients mother.
--- NOTE | 2019-06-23 16:40 | PC.NURSE ---
Patient transferred from isaias chair to wheelchair and escorted downstairs and outside to waiting personal vehicle. Patient made several attempts to get into vehicle with RN and family assisting. Patient was unable to get into vehicle. Patient assited back into wheelchair and brought back into hospital. Returned to floor, Rn will contact ambulance service for transport home
--- NOTE | 2019-06-23 18:15 | PC.NURSE ---
[facility] ambulance service called to request transfer. No ambulance available for transport at this time. [facility] ambulance service called for transport. Patient and family agree to pay out of pocket for transport, [facility] accepted transport. [facility] called back to accept transport, [facility] cancelled.
--- NOTE | 2019-06-23 18:35 | PC.NURSE ---
Patient taken off floor per [facility], discharged at this time
[2019-06-24 08:23] LABS: Glucose Point of Care 69 (65-105)
[2019-06-24 08:23] LABS: Glucose Point of Care 116 (65-105)
== END 2019-06-23 18:35 | disposition home or self-care (01) | DRG 641 ==
LOC: CHSED 21:24 → CHS2ND 21:56
PROVIDERS: Family Medicine; Nurse Practitioner; Admitting Provider Emergency Medicine; Emergency Provider Emergency Medicine; Visit Provider Emergency Medicine
DX: E87.6 Hypokalemia (principal); L03.90 Cellulitis, unspecified; E24.9 Cushing's syndrome, unspecified; E23.0 Hypopituitarism; S80.02XA Contusion of left knee, initial encounter; I11.0 Hypertensive heart disease with heart failure; I50.9 Heart failure, unspecified; E66.9 Obesity, unspecified; J44.9 Chronic obstructive pulmonary disease, unspecified; E11.9 Type 2 diabetes mellitus without complications; E03.9 Hypothyroidism, unspecified; Z99.81 Dependence on supplemental oxygen
CPT/HCPCS: 36415; 71046; 72192; 73552; 73590; 80048; 80053; 81001; 82040; 82550; 83735; 83880; 84100; 84133; 84702; 85025; 85027; 85380; 86140; 93005; 96361; 96365; 96366; 96367; 96368; 96372; 96375; 96376; 97162; 99283; 99285; A9270; G0378; J1170; J1650; J1815; J2405; J3475; J3480; J7050

== ENCOUNTER 2019-07-14 18:52 | Emergency (ER) | payer MEDICARE, MEDICAID, SELFPAY ==
[2019-07-14 19:02] VITALS: BP 202/114; PULSE 85; RESP 14; TEMP 36.6; O2SAT 98
[2019-07-14 19:07] VITALS: RESP 14
--- NOTE | 2019-07-14 19:20 | ED.RECABL ---
HPI - Recheck/Abnormal Lab/Rx General Chief Complaint: Recheck/Abnormal Lab/Rx Stated Complaint: amb Time Seen by Provider: 07/14/19 19:05 Source: patient Mode of arrival: EMS Limitations: physical limitation ( morbid exogenous obesity) History of Present Illness HPI narrative: Rosa is a 24-year-old female patient. she presents to the emergency room by ambulance. She has no complaints as such. Home health nurse had drawn some labs on her. Her potassium was found to be low. She was sent to the emergency room for a checkup. Patient does not complain of any symptoms. She has no nausea or vomiting. She had been seen in the emergency room recently for a similar problem. At that time she was on Lasix and this was discontinued. She was started on spironolactone. She is on potassium 20 mEq 3 times a day. She denies any blurred vision diplopia, chest pain dyspnea, abdominal pain, or other problems patient has history of morbid exogenous obesity. Her weight is more than 400 lb she has history of diabetes mellitus. She has history of hypertension. She has history of chronic cellulitis of both lower extremities. She has history of [place]'s syndrome. MD complaint: other ( Hypokalemia) Onset/Timin Initial visit for: other ( hyperkalemia) Description of abnormal result: potassium was low. We will check from the lap what is the exact number Symptoms since prior visit: no new symptoms Context: called for abnormal lab result Associated symptoms: none and other ( no fever. No chills. No shortness of breath. No chest pain.) Treatments prior to arrival: other medications ( Already on potassium supplementation) and other ( see list of medications) Related Data Home Medications Medication Instructions Recorded Confirmed Korlym 300 mg PO DAILY 06/20/19 07/14/19 Lantus Solostar U-100 Insulin 20 unit SUBCUT BID 06/20/19 07/14/19 albuterol sulfate 2 puff INHALATION Q4-6H PRN 06/20/19 07/14/19 amlodipine 10 mg PO DAILY 06/20/19 07/14/19 desmopressin 0.5 mg PO BID 06/20/19 07/14/19 ergocalciferol (vitamin D2) 50,000 unit PO 2XW 06/20/19 07/14/19 insulin aspart U-100 [Novolog 12 unit SUBCUT TIDWM 06/20/19 07/14/19 Flexpen U-100 Insulin] levothyroxine 125 mcg PO DAILY 06/20/19 07/14/19 levothyroxine 300 mcg PO DAILY 06/20/19 07/14/19 lisinopril 40 mg PO DAILY 06/20/19 07/14/19 rosuvastatin 40 mg PO DAILY 06/20/19 07/14/19 sumatriptan succinate 25 mg PO PRN PRN 06/20/19 07/14/19 Allergies Allergy/AdvReac Type Severity Reaction Status Date / Time ceftriaxone [From Rocephin] Allergy Severe Other Verified 06/20/19 19:23 linezolid Allergy Unknown Other Verified 06/20/19 19:23 vancomycin Allergy Unknown Other Verified 06/20/19 19:23 Review of Systems Review of Systems: All systems reviewed & are unremarkable except as noted in HPI and below Constitutional: Constitutional: Reports as per HPI, Reports no additional constitutional complaints, Denies chills and Denies fever(s) Eyes: Eyes: Reports as per HPI, Reports no additional eye complaints and Denies change in vision ENT: Reports system reviewed and no additional complaints, except as documented, Denies dysphagia and Denies sore throat Cardiovascular: Cardiovascular: Reports as per HPI, Reports no additional cardiovascular complaints, Denies chest pain and Denies radiating jaw, neck or arm pain Respiratory: Respiratory: Reports as per HPI, Reports no additional respiratory complaints, Denies cough and Denies dyspnea Gastrointestinal: Gastrointestinal: Reports as per HPI, Reports no additional gastrointestinal complaints, Denies abdominal pain, Denies diarrhea and Denies vomiting Genitourinary: Genitourinary: Reports no additional female genitourinary complaints, Denies hematuria and Denies dysuria Musculoskeletal: Musculoskeletal: Reports no additional musculoskeletal complaints and Denies back pain Integumentary/Breasts: Skin/Breast: Reports system reviewed and no additional complain
[2019-07-14 19:36] LABS: Basophils Absolute Auto 0.02 K/mm3 (0.00-0.10); Basophils Percent Auto 0.3 % (0.0-1.0); Eosinophils Absolute Auto 0.08 K/mm3 (0.02-0.50); Eosinophils Percent Auto 1.3 % (1.0-6.0); Hematocrit 36.6 % (35.0-49.0); Hemoglobin 10.8 g/dL (12.0-15.0); Immature Granulocyte Absolute 0.04 K/mm3 (0.00-0.00); Immature Granulocyte Percent A 0.6 % (0.0-0.0); Lymphocytes Absolute Auto 0.59 K/mm3 (1.10-4.50); Lymphocytes Percent Auto 9.4 % (18.0-42.0); Mean Corpuscular HGB Conc 29.5 g/dL (32.0-36.0); Mean Corpuscular Hemoglobin 27.1 pg (27.0-31.0); Mean Platelet Volume 10.3 fl (9.2-11.8); Monocytes Absolute Auto 0.29 K/mm3 (0.10-0.90); Monocytes Percent Auto 4.6 % (2.0-11.0); Neutrophils Absolute Auto 5.3 K/mm3 (1.7-7.2); Neutrophils Percent Auto 83.8 % (50.0-70.0); Platelet Count Result 183 K/mm3 (150-420); Red Blood Count 3.98 M/mm3 (4.20-5.40); Red Cell Distribution Width 18.9 % (11.6-14.4); White Blood Count 6.3 K/mm3 (4.8-10.8)
[2019-07-14 19:51] LABS: Albumin Level 3.6 g/dL (3.4-5.0); Alkaline Phosphatase 102 U/L (46-116); Aspartate Amino Transferase 14 U/L (15-37); Bilirubin,Total 1.6 mg/dL (0.00-1.00); Blood Urea Nitrogen 7 mg/dL (7-18); Calcium 8.4 mg/dL (8.5-10.1); Carbon Dioxide 34 mmol/L (21-32); Estimated CRCL calculation 154 ml/min; Estimated Glomerular Filt Rate > 60; Glucose 300 mg/dL (70-99)
[2019-07-14 20:00] LABS: Anion Gap 11.5 mmol/L (7-16); Chloride 103 mmol/L (98-108); Osmolality Calculated 311 mOsm/kg (285-295); Sodium 146 mmol/L (136-145)
[2019-07-14 20:07] LABS: Alanine Aminotransferase < 6 U/L (14-59); Potassium 2.5 mmol/L (3.5-5.1)
[2019-07-14] MEDS: KCL 40 MEQ/0.9% SOD CHL 1,000 ML 250 ML (20:35)
[2019-07-14] MEDS: POTASSIUM CHLORIDE 20 MEQ TABLET 40 MEQ (20:38)
[2019-07-14 20:51] VITALS: BP 137/68; PULSE 88; RESP 13; O2SAT 100
[2019-07-15 01:46] VITALS: BP 170/96; PULSE 89; RESP 20; O2SAT 97
[2019-07-15 02:31] LABS: Potassium 2.7 mmol/L (3.5-5.1)
[2019-07-15 02:41] VITALS: BP 160/88; PULSE 85; RESP 20; O2SAT 97
== END 2019-07-15 02:46 | disposition home or self-care (01) ==
PROVIDERS: Emergency Provider Surgery
DX: E11.9 Type 2 diabetes mellitus without complications (principal); E66.09 Other obesity due to excess calories
CPT/HCPCS: 36415; 80053; 84132; 85025; 96365; 96366; 99282; 99284; A9270

== ENCOUNTER 2019-08-09 04:50 | Emergency (ER) | payer MEDICARE, MEDICAID, SELFPAY ==
[2019-08-09 05:15] VITALS: BP 170/86; PULSE 87; RESP 20; TEMP 36.8; O2SAT 100
[2019-08-09 05:45] LABS: Hematocrit 35.6 % (35.0-49.0); Hemoglobin 10.8 g/dL (12.0-15.0); Mean Corpuscular HGB Conc 30.3 g/dL (32.0-36.0); Mean Corpuscular Hemoglobin 28.6 pg (27.0-31.0); Mean Corpuscular Volume 94.2 fL (78.0-102.0); Mean Platelet Volume 10.6 fl (9.2-11.8); Platelet Count Result 182 K/mm3 (150-420); Red Blood Count 3.78 M/mm3 (4.20-5.40); Red Cell Distribution Width 18.2 % (11.6-14.4); White Blood Count 7.7 K/mm3 (4.8-10.8)
[2019-08-09 05:58] LABS: Partial Thromboplastin Time 26.8 SEC (22.3-31.6); Prothrombin Time 10.2 Seconds (9.64-11.0)
[2019-08-09 06:01] LABS: Alanine Aminotransferase 9 U/L (14-59); Albumin Level 3.9 g/dL (3.4-5.0); Alkaline Phosphatase 123 U/L (46-116); Anion Gap 8.3 mmol/L (7-16); Aspartate Amino Transferase 12 U/L (15-37); Bilirubin,Total 1.4 mg/dL (0.00-1.00); Blood Urea Nitrogen 15 mg/dL (7-18); Calcium 9.1 mg/dL (8.5-10.1); Carbon Dioxide 35 mmol/L (21-32); Chloride 104 mmol/L (98-108); Estimated Glomerular Filt Rate > 60; Glucose 339 mg/dL (70-99); Osmolality Calculated 311 mOsm/kg (285-295); Potassium 3.3 mmol/L (3.5-5.1); Sodium 144 mmol/L (136-145); Total Protein 7.6 g/dL (6.4-8.2)
[2019-08-09 06:23] LABS: Add Urine Microscopic? YES; Appearance Urine Sl Cloudy (Clear); Bilirubin Urine Negative (Negative); Blood Urine 3+ (Negative); Color Urine Yellow (Yellow); Glucose Urine UA 3+ (Negative); Ketones Urine Negative (Negative); Leukocyte Esterase Ur Negative (Negative); Nitrate Urine Negative (Negative); Protein Urine 2+ (Negative); Specific Grav Ur 1.015 (1.010-1.020)
[2019-08-09 06:28] LABS: RBC Urine >75 /hpf (0-2); WBC Urine 0-3 /hpf (0-3)
[2019-08-09 06:29] LABS: Bacteria Urine Trace /hpf; Squamous Epithelial Cell Urine Rare /hpf (Few)
[2019-08-09 06:30] LABS: Pregnancy On Board Control Negative; Specific Gravity Ur 1.015 (1.010-1.035); Urine Pregnancy Test Negative
[2019-08-09 06:42] VITALS: BP 140/83; PULSE 82; RESP 18; O2SAT 100
--- NOTE | 2019-08-09 06:45 | ED.GENADULT ---
HPI - General Adult General Chief complaint: Vaginal Bleeding Source: patient and family Mode of arrival: ambulatory Limitations: physical limitation History of Present Illness HPI narrative: This is a 24-year-old female that presents with vaginal bleeding has been passing clots over the last couple of hours currently no active bleeding there is no abdominal pain recently discharged from the hospital with hypokalemia and is currently on potassium. Has multiple medical problems is morbidly obese with no abdominal pain no flank pain no dizziness no vertigo no dysuria no shortness of breath or chest pain. Onset (ago): hour(s) Location: genitals Severity: mild Related Data Home Medications Medication Instructions Recorded Confirmed Korlym 300 mg PO DAILY 06/20/19 07/14/19 Lantus Solostar U-100 Insulin 20 unit SUBCUT BID 06/20/19 07/14/19 albuterol sulfate 2 puff INHALATION Q4-6H PRN 06/20/19 07/14/19 desmopressin 0.5 mg PO BID 06/20/19 07/14/19 ergocalciferol (vitamin D2) 50,000 unit PO 2XW 06/20/19 07/14/19 insulin aspart U-100 [Novolog 12 unit SUBCUT TIDWM 06/20/19 07/14/19 Flexpen U-100 Insulin] levothyroxine 125 mcg PO DAILY 06/20/19 07/14/19 levothyroxine 300 mcg PO DAILY 06/20/19 07/14/19 lisinopril 40 mg PO DAILY 06/20/19 07/14/19 sumatriptan succinate 25 mg PO PRN PRN 06/20/19 07/14/19 aspirin 81 mg PO DAILY 08/09/19 08/09/19 bumetanide 0.5 mg PO 3XW 08/09/19 08/09/19 bumetanide 0.5 mg PO DAILY 08/09/19 08/09/19 hydralazine 50 mg PO TID 08/09/19 08/09/19 levonorgestrel [Mirena] 1 device INTRAUTERINE ONCE 08/09/19 08/09/19 nifedipine 60 mg PO DAILY 08/09/19 08/09/19 spironolactone 50 mg PO QAM 08/09/19 08/09/19 Allergies Allergy/AdvReac Type Severity Reaction Status Date / Time ceftriaxone [From Angi] Allergy Severe Other Verified 06/20/19 19:23 linezolid Allergy Unknown Other Verified 06/20/19 19:23 vancomycin Allergy Unknown Other Verified 06/20/19 19:23 Review of Systems Review of Systems: All systems reviewed & are unremarkable except as noted in HPI and below PMFSH Past Medical History Medical History Bipolar 1 disorder CHF (congestive heart failure) COPD (chronic obstructive pulmonary disease) Burchard disease Hypertension Hypopituitarism Hypothyroidism Lymphedema of both lower extremities Migraine Obesity On home oxygen therapy Osteomyelitis right leg Type 2 diabetes mellitus Surgical History Surgical History History of abdominal surgery Monsectomy per patient History of hypophysectomy x 2 S/P panniculectomy S/P tonsillectomy and adenoidectomy Status post incision and drainage Right leg abscess and osteomyelitis Family History Family History Mother Cerebrovascular accident Father Diabetes mellitus Social History Social History Smoking status: Never smoker Second hand tobacco smoke exposure: Yes Alcohol intake: never Substance use: never Substance use type: does not use Gender identity (if verbalized by the patient): Female Spiritual care concerns: No Agree to blood products: Yes Exam Const: General: no acute distress and alert Orientation/consciousness: patient oriented x3 HENMT: Head: normal to inspection Eyes: Pupils: Equal, round and reactive pupils present Neck: Neck: normal visual inspection Chest: Chest palpation & inspection: normal inspection of the chest Resp: Effort & Inspection: normal respiratory effort Auscultation: clear to auscultation bilaterally Cardio: Rate: regular rate Rhythm: regular rhythm GI: GI Palp: Yes Soft to palpation : General: Yes no CVA tenderness Speculum Exam - Vagina: vaginal bleeding ( Has been passing clots but no current active bleeding) Skin: General skin exam: normal color Galo
== END 2019-08-09 06:53 | disposition home or self-care (01) ==
PROVIDERS: Emergency Provider Emergency Medicine
DX: N93.9 Abnormal uterine and vaginal bleeding, unspecified (principal); E87.6 Hypokalemia; I50.9 Heart failure, unspecified; J44.9 Chronic obstructive pulmonary disease, unspecified; I10 Essential (primary) hypertension; E03.9 Hypothyroidism, unspecified; E11.9 Type 2 diabetes mellitus without complications
CPT/HCPCS: 36415; 80053; 81001; 81025; 85027; 85610; 85730; 99282; 99283

== ENCOUNTER 2019-12-05 11:26 | Emergency (ER) | payer MEDICARE, MEDICAID, SELFPAY ==
--- NOTE | ~2019-12-05 | XR_ITS ---
EXAMINATION: XR chest 1V portable DATE: 12/05/2019 11:55 INDICATION: Left-sided chest pain TECHNIQUE: frontal view of the chest was obtained. COMPARISON: Chest radiograph dated 06/23/2019 FINDINGS: Evaluation of fine pulmonary parenchymal detail is limited by portable technique and patient body hab itus. No definitive airspace opacities, pulmonary edema, pleural effusion or pneumothorax. Cardiomega ly. Visualized bones and soft tissues are unremarkable. IMPRESSION: 1. Cardiomegaly. 2. No definitive lung disease however evaluation of fine pulmonary parenchymal detail is limited by p ortable technique and patient body habitus Reviewed, dictated and finalized at location A. IMPRESSION: 1. Cardiomegaly. 2. No definitive lung disease however evaluation of fine pulmonary parenchymal detail is limited by portable technique and patient body habitus
--- NOTE | ~2019-12-05 | CT_ITS ---
EXAMINATION: CTA chest PE protocol DATE: 12/05/2019 13:11 INDICATION: Shortness of breath. Left-sided chest pain. TECHNIQUE: Computed tomography (CT) pulmonary angiogram of the chest was performed with 100 mL Omnipa que-350 intravenous contrast. Additional 3D reconstructions utilizing coronal maximum intensity proje ction (MIP) were performed. Automated exposure control and iterative reconstruction technique were em ployed. The dose-length product was 873.65 mGy-cm. COMPARISON: None FINDINGS: Marginal contrast opacification of the pulmonary arteries. There is mild streak artifact from dense c ontrast in the superior vena cava and right atrium. Minimal scattered respiratory motion artifact. Th ere is also increased quantum mottle resulting from patient body habitus. No definite pulmonary embol ism although sensitivity is decreased particularly in the smaller subsegmental arteries due to the gill boptimal contrast opacification. Very small left pleural effusion. Mosaic attenuation throughout the lungs most likely related to atelectasis due to expiratory phase of imaging with scattered subsegment al regions of air trapping related to small airway disease. No septal line thickening to suggest pulm onary edema. Cardiomegaly. Small pericardial effusion overlying the right atrium. Thoracic aorta is n ormal in caliber with no dissection. No pathologically enlarged thoracic lymphadenopathy. Diffuse bod y wall edema. Multiple bilateral old healed rib fractures. There are also nondisplaced ununited subac oskar appearing rib fractures with small amount of callus formation involving the posterior right sixth and seventh ribs and anterolateral left sixth-eighth ribs. IMPRESSION: 1. No pulmonary embolism with sensitivity decreased particularly in the subsegmental pulmonary arteri es due to suboptimal contrast opacification. 2. Diffuse mosaic attenuation likely mild atelectasis related to expiratory phase of imaging with sca ttered subsegmental regions of air trapping related to small airway disease. 3. Multiple lateral rib fractures, many chronic and a few subacute rib fractures on the left and righ t. 4. Cardiomegaly and small pericardial effusion. Reviewed, dictated and finalized at location A. IMPRESSION: 1. No pulmonary embolism with sensitivity decreased particularly in the subsegm ental pulmonary arteries due to suboptimal contrast opacification. 2. Diffuse mosaic attenuation likely mild atelectasis related to expiratory pha se of imaging with scattered subsegmental regions of air trapping related to sm all airway disease. 3. Multiple lateral rib fractures, many chronic and a few subacute rib fracture s on the left and right. 4. Cardiomegaly and small pericardial effusion.
--- NOTE | 2019-12-05 11:31 | ECG_ITS ---
Measurements Intervals [place] Rate: 83 P: 62 AK: 164 QRS: 150 QRSD: 165 T: 19 QT: 430 QTc: 507 Interpretive Statements SINUS RHYTHM RIGHT BUNDLE BRANCH BLOCK LEFT POSTERIOR FASCICULAR BLOCK BASELINE ARTIFACT- I, II, AVR, AVL ABNORMAL ECG Electronically Signed On 12-05-2019 14:48:44 CDT by Brown Barton D.O.
--- NOTE | 2019-12-05 11:33 | ED.CHESTPAIN ---
HPI - Chest Pain General Chief Complaint: Chest Pain Stated Complaint: Ambulance History of Present Illness HPI narrative: Patient presents to the ED with a history of over 18 hours of chest pain. Patient states that the chest pain started yesterday after she got out of the car and walked in case he has to use the bathroom. Patient states they have been lauren in to see the fireworks, and on her way home home as she stood up to go to the bathroom she describes the pain is somewhere in between sharp and dull and sits in the middle of her chest. Patient states she has had this pain before at this seemed to last longer today. Patient does state she has some well-child breath, however she is short of breath all the time and this may be only slightly worse than normal. She denies fevers chills cough and Gerber pain nausea vomiting sore throat or any other GI disturbance. MD complaint: chest discomfort Onset (ago): hour(s) Timing of current episode: episodic and still present Prior episodes: Yes Pain location: substernal Pain radiation: none Severity: mild Quality: aching Relieving factors: nothing Exacerbating factors: exertion ( Including standing up) Context: recent illness ( patient states she was in the hospital at [place] and for pneumonia, however relates she was not discharged on any antibiotics) Associated symptoms: dyspnea and leg swelling ( patient has lymphedema she is unsure whether she is more swollen than normal or not) Risk Factors Pulmonary embolism risk factors: immobilization and morbid obesity Related Data Home Medications Medication Instructions Recorded Confirmed Korlym 300 mg PO DAILY 06/20/19 12/05/19 Lantus Solostar U-100 Insulin 20 unit SUBCUT BID 06/20/19 12/05/19 albuterol sulfate 2 puff INHALATION Q4-6H PRN 06/20/19 12/05/19 desmopressin 0.1 mg PO BID 06/20/19 12/05/19 ergocalciferol (vitamin D2) 50,000 unit PO 2XW 06/20/19 12/05/19 insulin aspart U-100 [Novolog 8 unit SUBCUT BID 06/20/19 12/05/19 Flexpen U-100 Insulin] levothyroxine 125 mcg PO DAILY 06/20/19 12/05/19 levothyroxine 300 mcg PO DAILY 06/20/19 12/05/19 sumatriptan succinate 25 mg PO PRN PRN 06/20/19 12/05/19 hydralazine 50 mg PO TID 08/09/19 12/05/19 levonorgestrel [Mirena] 1 device INTRAUTERINE ONCE 08/09/19 12/05/19 nifedipine 60 mg PO DAILY 08/09/19 12/05/19 spironolactone 50 mg PO QAM 08/09/19 12/05/19 Allergies Allergy/AdvReac Type Severity Reaction Status Date / Time ceftriaxone [From Rocephin] Allergy Severe Other Verified 06/20/19 19:23 linezolid Allergy Unknown Other Verified 06/20/19 19:23 vancomycin Allergy Unknown Other Verified 06/20/19 19:23 Review of Systems Constitutional: Constitutional: Reports no additional constitutional complaints Eyes: Eyes: Denies as per HPI, Reports no additional eye complaints, Denies change in vision and Denies photophobia ENT: Denies system reviewed and no additional complaints, except as documented, Denies as per HPI, Denies dysphagia, Denies vertigo, Denies dizziness, Denies epistaxis, Denies nasal congestion and Denies sore throat Cardiovascular: Cardiovascular: Reports chest pain, Denies rapid heart rate, Denies radiating jaw, neck or arm pain and Denies slow heart rate Respiratory: Respiratory: Denies chest congestion, Denies cough, Reports dyspnea and Denies wheezing Gastrointestinal: Gastrointestinal: Reports no additional gastrointestinal complaints Genitourinary: Genitourinary: Reports no additional female genitourinary complaints, Denies as per HPI, Denies abnormal vaginal bleeding, Denies hematuria, Denies nocturia, Denies genital lesions, Denies dysuria, Denies pelvic pain, Denies flank pain, Denies urinary incontinence and Denies vaginal discharge Musculoskeletal: Musculoskeletal: Reports no additional musculoskeletal complaints, Denies as per HPI, Denies back pain, Denies myalgias, Denies arthralgias, Denies joint swelling and Denies muscle cramps Neurologic: Denies system revi
[2019-12-05 11:35] VITALS: BP 191/93; PULSE 87; RESP 20; TEMP 36.7; O2SAT 99
[2019-12-05 12:00] VITALS: PULSE 83
[2019-12-05 12:03] LABS: Basophils Absolute Auto 0.02 K/mm3 (0.00-0.10); Basophils Percent Auto 0.4 % (0.0-1.0); Hematocrit 32.1 % (35.0-49.0); Hemoglobin 9.6 g/dL (12.0-15.0); Immature Granulocyte Absolute 0.07 K/mm3 (0.00-0.00); Immature Granulocyte Percent A 1.4 % (0.0-0.0); Lymphocytes Absolute Auto 0.54 K/mm3 (1.10-4.50); Lymphocytes Percent Auto 10.8 % (18.0-42.0); Mean Corpuscular HGB Conc 29.9 g/dL (32.0-36.0); Mean Corpuscular Hemoglobin 29.8 pg (27.0-31.0); Mean Corpuscular Volume 99.7 fL (78.0-102.0); Mean Platelet Volume 10.4 fl (9.2-11.8); Neutrophils Percent Auto 79.4 % (50.0-70.0); Nucleated Red Blood Cells Absolute Auto 0.02 K/mm3 (0.00-0.00); Nucleated Red Blood Cells Perc 0.4 % (0-0.0); Platelet Count Result 138 K/mm3 (150-420); Red Blood Count 3.22 M/mm3 (4.20-5.40); Red Cell Distribution Width 19.1 % (11.6-14.4)
[2019-12-05 12:17] LABS: Prothrombin Time 10.8 Seconds (9.64-11.0)
[2019-12-05 12:19] LABS: D Dimer 1.48 mg/L (0.19-0.50)
[2019-12-05 12:21] LABS: Alanine Aminotransferase 7 U/L (14-59); Albumin Level 3.4 g/dL (3.4-5.0); Alkaline Phosphatase 103 U/L (46-116); Anion Gap 3.6 mmol/L (7-16); Aspartate Amino Transferase 15 U/L (15-37); Bilirubin,Total 1.2 mg/dL (0.00-1.00); Blood Urea Nitrogen 14 mg/dL (7-18); Calcium 8.4 mg/dL (8.5-10.1); Carbon Dioxide 45 mmol/L (21-32); Chloride 99 mmol/L (98-108); Estimated Glomerular Filt Rate 57; Glucose 322 mg/dL (70-99); Osmolality Calculated 310 mOsm/kg (285-295); Potassium 3.6 mmol/L (3.5-5.1); Sodium 144 mmol/L (136-145); Total Protein 6.7 g/dL (6.4-8.2)
[2019-12-05 12:23] LABS: Troponin I < 0.02 ng/mL (0.00-0.056)
--- NOTE | 2019-12-05 12:30 | PC.NURSE ---
UNSUCCESSFUL OBANDO CATHETER ATTEMPT - PER ERP OK TO NOT HAVE A STERILE SPECIMEN - CAN WAIT TO SEND A URINE CULTURE DUE TO PT BODY HABITUS
[2019-12-05 14:00] VITALS: BP 169/94; PULSE 80; O2SAT 99
[2019-12-05 14:40] VITALS: BP 190/93; PULSE 68; O2SAT 96
== END 2019-12-05 14:45 | disposition home or self-care (01) ==
PROVIDERS: Emergency Provider Emergency Medicine
DX: R07.9 Chest pain, unspecified (principal); N39.0 Urinary tract infection, site not specified; I50.9 Heart failure, unspecified; J44.9 Chronic obstructive pulmonary disease, unspecified; I10 Essential (primary) hypertension; E03.9 Hypothyroidism, unspecified
CPT/HCPCS: 36415; 71045; 71275; 80053; 84484; 85025; 85380; 85610; 87086; 87088; 93005; 99284; Q9965

== ENCOUNTER 2020-01-15 20:08 | Inpatient (IN) | payer MEDICARE, MEDICAID, SELFPAY ==
[2020-01-15] VITALS (7 sets, daily range): BP systolic 167–183; BP diastolic 89–105; PULSE 76–96; RESP 18–22; TEMP 36.5–36.6; O2SAT 79–100; BMI 69.3
[2020-01-15] MEDS: DEXTROSE 10% 250 ML 100 ML (20:39)
[2020-01-15 20:52] LABS: Hematocrit 36.2 % (35.0-49.0); Hemoglobin 10.7 g/dL (12.0-15.0); Mean Corpuscular HGB Conc 29.6 g/dL (32.0-36.0); Mean Corpuscular Hemoglobin 29.4 pg (27.0-31.0); Mean Corpuscular Volume 99.5 fL (78.0-102.0); Mean Platelet Volume 10.1 fl (9.2-11.8); Platelet Count Result 180 K/mm3 (150-420); Red Blood Count 3.64 M/mm3 (4.20-5.40); Red Cell Distribution Width 16.8 % (11.6-14.4); White Blood Count 4.4 K/mm3 (4.8-10.8)
[2020-01-15 21:10] LABS: Lactic Acid 1.2 mmol/L (0.4-2.0)
[2020-01-15 21:15] LABS: Alanine Aminotransferase 7 U/L (14-59); Albumin Level 3.4 g/dL (3.4-5.0); Alkaline Phosphatase 111 U/L (46-116); Anion Gap 1 mmol/L (8-16); Aspartate Amino Transferase 18 U/L (15-37); Bilirubin,Total 1.6 mg/dL (0.00-1.00); Blood Urea Nitrogen 12 mg/dL (7-18); Calcium 8.6 mg/dL (8.5-10.1); Carbon Dioxide 41 mmol/L (21-32); Chloride 102 mmol/L (98-108); Estimated Glomerular Filt Rate 54; Glucose 77 mg/dL (70-99); Osmolality Calculated 296 mOsm/kg (285-295); Potassium 3.1 mmol/L (3.5-5.1); Sodium 144 mmol/L (136-145); Thyroid Stimulating Hormone 0.02 uIU/mL (0.36-3.74); Total Protein 7.1 g/dL (6.4-8.2)
[2020-01-15] MEDS: CLINDAMYCIN 600 MG/D5W 50 ML 600 MG/50 ML PIGGYBACK 100 MG IVPB (21:17)
[2020-01-15 21:21] LABS: Glucose Point of Care 76 (65-105)
[2020-01-15 21:21] LABS: Glucose Point of Care 58 (65-105)
[2020-01-15 21:21] LABS: Glucose Point of Care 78 (65-105)
--- NOTE | 2020-01-15 21:30 | ED.GENADULT ---
HPI - General Adult General Chief complaint: Recheck/Abnormal Lab/Rx Stated complaint: AMB Source: patient, family and EMS Mode of arrival: EMS Limitations: no limitations History of Present Illness HPI narrative: A 24-year-old female presents via EMS with some hypoglycemic episode, patient has some a blood sugar that was in the 60s and felt clammy and diaphoretic and EMS was called. Patient recently finished a course of antibiotics for cellulitis of the breast and abdomen approximately 1 week ago. Currently the patient appears comfortable with no chest pain no shortness of breath no fever chills no abdominal pain. There is some redness erythema warmth and tenderness to the right breast area and right abdomen. The patient has a history of diabetes, hypothyroidism, history of hypertension. The patient recently had a course of antibiotics that she was given for cellulitis at [facility]. Onset (ago): hour(s) Location: abdomen Radiation: non-radiation Severity: mild Related Data Home Medications Medication Instructions Recorded Confirmed Korlym 300 mg PO DAILY 06/20/19 01/15/20 Lantus Solostar U-100 Insulin 20 unit SUBCUT BID 06/20/19 01/15/20 albuterol sulfate 2 puff INHALATION Q4-6H PRN 06/20/19 01/15/20 desmopressin 0.1 mg PO BID 06/20/19 01/15/20 ergocalciferol (vitamin D2) 50,000 unit PO 2XW 06/20/19 01/15/20 insulin aspart U-100 [Novolog 8 unit SUBCUT BID 06/20/19 01/15/20 Flexpen U-100 Insulin] levothyroxine 125 mcg PO DAILY 06/20/19 01/15/20 levothyroxine 300 mcg PO DAILY 06/20/19 01/15/20 sumatriptan succinate 25 mg PO PRN PRN 06/20/19 01/15/20 hydralazine 50 mg PO TID 08/09/19 01/15/20 levonorgestrel [Mirena] 1 device INTRAUTERINE ONCE 08/09/19 01/15/20 nifedipine 60 mg PO DAILY 08/09/19 01/15/20 spironolactone 50 mg PO QAM 08/09/19 01/15/20 Allergies Allergy/AdvReac Type Severity Reaction Status Date / Time ceftriaxone [From Rocephin] Allergy Severe Other Verified 06/20/19 19:23 linezolid Allergy Unknown Other Verified 06/20/19 19:23 vancomycin Allergy Unknown Other Verified 06/20/19 19:23 Review of Systems Review of Systems: All systems reviewed & are unremarkable except as noted in HPI and below PMFSH Past Medical History Medical History Bipolar 1 disorder CHF (congestive heart failure) COPD (chronic obstructive pulmonary disease) Syeda disease Hypertension Hypopituitarism Hypothyroidism Lymphedema of both lower extremities Migraine Obesity On home oxygen therapy Osteomyelitis right leg Type 2 diabetes mellitus Surgical History Surgical History History of abdominal surgery Monsectomy per patient History of hypophysectomy x 2 S/P panniculectomy S/P tonsillectomy and adenoidectomy Status post incision and drainage Right leg abscess and osteomyelitis Family History Family History Mother Cerebrovascular accident Father Diabetes mellitus Social History Social History Smoking status: Never smoker Second hand tobacco smoke exposure: Yes Alcohol intake: never Substance use: never Substance use type: does not use Gender identity (if verbalized by the patient): Female Spiritual care concerns: No Agree to blood products: Yes Exam Const: General: no acute distress and alert Orientation/consciousness: patient oriented x3 HENMT: Head: normal to inspection Eyes: Conjunctivae: conjunctivae normal Pupils: Equal, round and reactive pupils present EOM: EOMs intact bilaterally Neck: Neck: normal visual inspection, no lymphadenopathy and no meningeal signs Chest: Chest palpation & inspection: normal inspection of the chest Resp: Effort & Inspection: normal respiratory effort Auscultation: clear to auscultation bilaterally Cardio: R
[2020-01-15] MEDS: KCL 20 MEQ/SW 100 ML 100 ML 50 MEQ IVPB (21:50)
[2020-01-15] MEDS: SODIUM CHLORIDE 0.9% IV 1,000 ML 100 ML IV CONT (22:45)
[2020-01-15 22:58] LABS: Glucose Point of Care 78 (65-105)
--- NOTE | 2020-01-15 23:34 | PC.NURSE ---
Patient arrived from ER on stretcher. Able to stand with assistance and transfer self to bed. Positioned self for comfort. Call light to room. Oriented to room.
[2020-01-16] VITALS: BP 161/96; PULSE 72; RESP 18; TEMP 36.6; O2SAT 100
[2020-01-16 04:00] VITALS: BP 144/83; PULSE 75; RESP 18; TEMP 36.6; O2SAT 99
[2020-01-16] MEDS: CLINDAMYCIN 600 MG/D5W 50 ML 600 MG/50 ML PIGGYBACK 100 MG IVPB ×3 (04:41→20:52)
[2020-01-16 04:59] LABS: Glucose Point of Care 67 (65-105)
--- NOTE | 2020-01-16 05:02 | PC.NURSE ---
Patient blood glucose 67. Patient is alert and oriented. Denies in symptoms of hypoglycemia. OJ and glucerna given. Will recheck
[2020-01-16 05:34] LABS: Basophils Absolute Auto 0.02 K/mm3 (0.00-0.10); Basophils Percent Auto 0.5 % (0.0-1.0); Eosinophils Percent Auto 2.3 % (1.0-6.0); Hematocrit 32.1 % (35.0-49.0); Hemoglobin 9.5 g/dL (12.0-15.0); Immature Granulocyte Absolute 0.01 K/mm3 (0.00-0.00); Immature Granulocyte Percent A 0.2 % (0.0-0.0); Lymphocytes Absolute Auto 0.47 K/mm3 (1.10-4.50); Mean Corpuscular HGB Conc 29.6 g/dL (32.0-36.0); Mean Corpuscular Hemoglobin 29.6 pg (27.0-31.0); Mean Platelet Volume 10.3 fl (9.2-11.8); Monocytes Absolute Auto 0.27 K/mm3 (0.10-0.90); Monocytes Percent Auto 6.3 % (2.0-11.0); Neutrophils Absolute Auto 3.4 K/mm3 (1.7-7.2); Neutrophils Percent Auto 79.7 % (50.0-70.0); Platelet Count Result 173 K/mm3 (150-420); Red Blood Count 3.21 M/mm3 (4.20-5.40); Red Cell Distribution Width 16.8 % (11.6-14.4); White Blood Count 4.3 K/mm3 (4.8-10.8)
[2020-01-16 05:43] LABS: Hemoglobin A1C 8.7 % (<5.7)
[2020-01-16 05:55] LABS: Glucose Point of Care 90 (65-105)
[2020-01-16 05:58] LABS: Magnesium 1.7 mg/dL (1.8-2.4); Thyroid Stimulating Hormone 0.02 uIU/mL (0.36-3.74)
[2020-01-16] MEDS: LEVOTHYROXINE SODIUM 100 MCG TABLET 300 MCG PO (06:05)
[2020-01-16 07:17] LABS: Glucose Point of Care 109 (65-105)
[2020-01-16 07:42] VITALS: BP 145/90; PULSE 75; RESP 18; TEMP 36.8; O2SAT 95
--- NOTE | 2020-01-16 07:57 | ECG_ITS ---
Measurements Intervals [place] Rate: 70 P: 52 LA: 181 QRS: 152 QRSD: 174 T: -4 QT: 485 QTc: 526 Interpretive Statements SINUS RHYTHM RIGHT AXIS DEVIATION RIGHT BUNDLE BRANCH BLOCK ABNORMAL ECG Electronically Signed On 01-16-2020 8:49:36 CDT by Brown Barton D.O.
[2020-01-16 08:40] LABS: Alanine Aminotransferase 7 U/L (14-59); Albumin Level 3.1 g/dL (3.4-5.0); Alkaline Phosphatase 97 U/L (46-116); Anion Gap 1 mmol/L (8-16); Aspartate Amino Transferase 16 U/L (15-37); Bilirubin,Total 1.2 mg/dL (0.00-1.00); Blood Urea Nitrogen 14 mg/dL (7-18); Calcium 8.1 mg/dL (8.5-10.1); Carbon Dioxide 40 mmol/L (21-32); Chloride 105 mmol/L (98-108); Estimated CRCL calculation 106 ml/min; Estimated Glomerular Filt Rate 54; Glucose 89 mg/dL (70-99); Osmolality Calculated 301 mOsm/kg (285-295); Potassium 3.4 mmol/L (3.5-5.1); Sodium 146 mmol/L (136-145)
[2020-01-16 09:06] LABS: BNP 715 pg/mL (0-100)
[2020-01-16] MEDS: NIFEdipine 30 MG TAB.ER.24 60 MG PO (09:09)
[2020-01-16] MEDS: hydrALAZINE HCL 25 MG TABLET 50 MG PO ×3 (09:10→17:13)
[2020-01-16] MEDS: SPIRONOLACTONE 25 MG TABLET 50 MG PO (09:10)
[2020-01-16] MEDS: POTASSIUM CHLORIDE 20 MEQ TABLET PO (09:11)
[2020-01-16] MEDS: MAGNESIUM SULF 2 GM/WATER 50ML 2 GM/50 ML BAG IVPB (09:17)
[2020-01-16] MEDS: TOLNAFTATE 1% POWDER 45 GM BTL 1 APPLIC TOPICAL ×2 (09:17→20:52)
--- NOTE | 2020-01-16 09:30 | PC.NURSE ---
In bed, denies needs, feels good, no signs of hypoglycemia, taking oral fluids well, all folds cleansed and powder applied,
--- NOTE | 2020-01-16 09:50 | PM.IMHP ---
H&P: HPI History of Present Illness Date/Time: 01/16/20 09:50 Chief complaint: hypoglycemia Narrative: Rosa Sullivan is a 24 year old female admitted yesterday because her blood sugars have been low at home. Her glucose was running in the 60s and she was diaphoretic at home so they called the EMS. She does use Lantus insulin at home as well as aspart insulin at home. Her gardening instructor is Beverley Morse (phone [phone]) at [facility] in [place], [place]. The patient denies any medication changes over the last month or 2. She denies any new medications and she denies any increases or decreases in her medication dosing. Rosa denies any weight loss or weight gain. Rosa denies any changes in her diet or her oral intake or her appetite or ability to eat. Per ED Dr. Nevarez notes: A 24-year-old female presents via EMS with some hypoglycemic episode, patient has some a blood sugar that was in the 60s and felt clammy and diaphoretic and EMS was called. Patient recently finished a course of antibiotics for cellulitis of the breast and abdomen approximately 1 week ago. Currently the patient appears comfortable with no chest pain no shortness of breath no fever chills no abdominal pain. There is some redness erythema warmth and tenderness to the right breast area and right abdomen. The patient has a history of diabetes, hypothyroidism, history of hypertension. The patient recently had a course of antibiotics that she was given for cellulitis at [facility]. That was [facility]. She was recently admitted November 19 and then discharged from [facility] on December 21 of this year. Her P O2 was 25, pCO2 67, and her O2 sats were 37%, she was admitted for encephalopathy , acute on chronic respiratory failure with hypoxia, and shortness of breath for [address]. [address]Priya Vargas in [place] for PCP, from [facility]. She no longer has a rug hooker. But needs to be referred to one at discharge, with her DONNA, Bipap use at night, and continuous O2 dependence. She sees her gardening instructor Beverley Morse (phone [phone]) at [facility] for her pituitary Syeda syndrome, hypokalemia, diabetes insipidus, secondary hypothyroidism, type 2 diabetes with hyperglycemia and long-term use of insulin, vitamin-D deficiency, and hyperlipidemia/ dyslipidemia. Rosa has been on Mifepristone (Korlym) since February 2017.. She last saw her gardening instructor in August of 2019 and has a visit already scheduled with her next month. She is supposed to see a land degradation analyst soon as she has been having vaginal bleeding and still has a jose e IUD. Today, Rosa denies any pain anywhere. Rosa denies chest pain or pressure, denies shortness of breath while resting in bed and denies dyspnea with our conversation. Rosa denies any pain to her legs or heels or buttocks or folds. She has redness to her right breast and right abdomen as well as her left lower extremity. Rosa has a warm and reddened left lower leg extending from her ankle up into her calf. The redness stops just prior to her knee. The redness and warmth is circumferential on the entire lower leg. There is no specific wound or open area or scab or bite that can be attributed to the start of this redness and warmth. Rosa denies any pain to this left lower leg, but she stated that when she felt my cooler gloved hand touch it that she noted how warm the leg was at that time. She denies noticing it prior to that. Rosa will remain admitted to continue her IV Clindamycin treatments for her cellulitis. She will also need to have further glucose monitoring and management and titration of her medications , overnight and tomorrow. Her last glucose readings were 77, 78, 109, 104 today. She is alert and oriented and asymptomatic at this time. We will continue her normal saline at 100 mL an hour, as she is not taking in much oral
--- NOTE | 2020-01-16 11:01 | PC.NURSE ---
Watching TV, fluids infusing, no distress noted
[2020-01-16 11:25] LABS: Glucose Point of Care 104 (65-105)
--- NOTE | 2020-01-16 11:25 | PC.NURSE ---
bedside glucose 104, denies needs, fluids infusing
[2020-01-16 12:00] VITALS: BP 139/88; PULSE 75; RESP 18; TEMP 36.6; O2SAT 95
--- NOTE | 2020-01-16 12:00 | PC.NURSE ---
Assisted to sitting position, sitting on edge of bed to eat lunch, steady, call light in reach
[2020-01-16] MEDS: SODIUM CHLORIDE 0.9% IV 1,000 ML 100 ML IV CONT (12:28)
[2020-01-16] MEDS: POTASSIUM CHLORIDE 20 MEQ TABLET 40 MEQ PO (12:30)
--- NOTE | 2020-01-16 13:16 | PC.NURSE ---
Assisted to laying position, fluids continue to infuse at this time
--- NOTE | 2020-01-16 14:00 | PC.NURSE ---
Resting in bed watching TV, denies needs, fluids infusing
[2020-01-16 16:00] VITALS: BP 110/54; PULSE 86; RESP 18; TEMP 36.6; O2SAT 96
[2020-01-16 16:52] LABS: Glucose Point of Care 141 (65-105)
[2020-01-16] MEDS: DESMOPRESSIN ACETATE 0.1 MG TABLET PO (17:13)
[2020-01-16 20:00] VITALS: BP 132/69; PULSE 70; RESP 20; TEMP 36.3; O2SAT 100
[2020-01-16 21:03] LABS: Glucose Point of Care 182 (65-105)
--- NOTE | 2020-01-16 22:27 | P.PNCROSS_ITS ---
Event Note Event Note Event Note: For this patient encounter, I reviewed the EXPENDITURE REQUISITION CLERK or PA documentation, treatment plan, and medical decision making; and I had [id number] time with this patient.
--- NOTE | 2020-01-16 22:27 | PM.EVENT ---
Event Note Event Note Event Note: For this patient encounter, I reviewed the WOMEN SPECIALIST or PA documentation, treatment plan, and medical decision making; and I had [id number]-[id number] time with this patient.
[2020-01-17] VITALS: BP 134/74; PULSE 74; RESP 20; TEMP 36.6; O2SAT 98
[2020-01-17 01:05] LABS: Glucose Point of Care 174 (65-105)
[2020-01-17 04:00] VITALS: BP 143/79; PULSE 71; RESP 14; TEMP 37.1; O2SAT 97
[2020-01-17] MEDS: CLINDAMYCIN 600 MG/D5W 50 ML 600 MG/50 ML PIGGYBACK 100 MG IVPB (05:58)
[2020-01-17] MEDS: LEVOTHYROXINE SODIUM 100 MCG, LEVOTHYROXINE SODIUM 50 MCG 150 MCG PO (05:59)
[2020-01-17 06:17] LABS: Glucose Point of Care 181 (65-105)
[2020-01-17 07:36] LABS: Glucose Point of Care 151 (65-105)
[2020-01-17 07:37] VITALS: BP 128/77; PULSE 67; RESP 18; TEMP 36.6; O2SAT 95
--- NOTE | 2020-01-17 08:00 | PC.NURSE ---
Up to bathroom, used walker, and SBA, tolerated well, voided and back to sit on edge of bed for breakfast
[2020-01-17 08:34] LABS: Hematocrit 32.3 % (35.0-49.0); Hemoglobin 9.4 g/dL (12.0-15.0); Mean Corpuscular HGB Conc 29.1 g/dL (32.0-36.0); Mean Corpuscular Hemoglobin 29.3 pg (27.0-31.0); Mean Corpuscular Volume 100.6 fL (78.0-102.0); Mean Platelet Volume 10.4 fl (9.2-11.8); Platelet Count Result 177 K/mm3 (150-420); Red Blood Count 3.21 M/mm3 (4.20-5.40)
[2020-01-17] MEDS: DESMOPRESSIN ACETATE 0.1 MG TABLET PO (08:50)
[2020-01-17] MEDS: hydrALAZINE HCL 25 MG TABLET 50 MG PO (08:51)
[2020-01-17] MEDS: NIFEdipine 30 MG TAB.ER.24 60 MG PO (08:52)
[2020-01-17] MEDS: POTASSIUM CHLORIDE 20 MEQ TABLET PO (08:52)
[2020-01-17 08:53] LABS: Alanine Aminotransferase 6 U/L (14-59); Albumin Level 3.5 g/dL (3.4-5.0); Alkaline Phosphatase 105 U/L (46-116); Anion Gap 3 mmol/L (8-16); Aspartate Amino Transferase 17 U/L (15-37); Bilirubin,Total 1.4 mg/dL (0.00-1.00); Blood Urea Nitrogen 14 mg/dL (7-18); Calcium 8.4 mg/dL (8.5-10.1); Carbon Dioxide 39 mmol/L (21-32); Chloride 102 mmol/L (98-108); Estimated CRCL calculation 101 ml/min; Estimated Glomerular Filt Rate 51; Glucose 136 mg/dL (70-99); Magnesium 1.9 mg/dL (1.8-2.4); Osmolality Calculated 300 mOsm/kg (285-295); Potassium 3.5 mmol/L (3.5-5.1); Sodium 144 mmol/L (136-145); Total Protein 7.1 g/dL (6.4-8.2)
[2020-01-17] MEDS: SPIRONOLACTONE 25 MG TABLET 50 MG PO (08:53)
[2020-01-17] MEDS: TOLNAFTATE 1% POWDER 45 GM BTL 1 APPLIC TOPICAL (08:54)
[2020-01-17 09:02] LABS: BNP 405 pg/mL (0-100)
--- NOTE | 2020-01-17 10:22 | PC.NURSE ---
skin folds to abdomen lifted, washed and dried, tolifinate powder applied, tolerated fairly well
--- NOTE | 2020-01-17 11:07 | PC.NURSE ---
Up to bathroom to void, used walker, no assitance needed to stand or to sit, tolerated well, no distress, walked without her oxygen, back to bed to sit and wait for DC orders to be written
[2020-01-17 11:10] LABS: Add Urine Microscopic? YES; Appearance Urine Clear (Clear); Bilirubin Urine Negative (Negative); Blood Urine Negative (Negative); Color Urine Yellow (Yellow); Glucose Urine UA Negative (Negative); Ketones Urine Negative (Negative); Leukocyte Esterase Ur Negative (Negative); Nitrate Urine Negative (Negative); Protein Urine 2+ (Negative)
[2020-01-17 11:12] LABS: Bacteria Urine Trace /hpf; RBC Urine None seen /hpf (0-2); Squamous Epithelial Cell Urine Few /hpf (Few); WBC Urine None seen /hpf (0-3)
--- NOTE | 2020-01-17 11:20 | P.DS_ITS ---
DS: Admitting Diagnosis Admitting Diagnosis Admitting Diagnosis: hypoglycemia DS: Discharge Diagnosis Discharge Diagnosis (1) Hypoglycemia: Code(s): E16.2 - Hypoglycemia, unspecified Status: Acute Assessment and Plan: * resolved controlled * A1c 8.7 * etiology unknown * reported that home blood sugar was 60 * before admission patient on Lantus 20 units of insulin and NovoLog pen 14 units subcu b.i.d. patient will adjusted patient will discharge with 10 units subcu b.i.d. and follow-up with medication technician is Beverley Morse (phone [phone]) at [facility] in [place], [place]. * sees [facility] Encaser for:pituitary Syeda syndrome, hypokalemia, diabetes insipidus, secondary hypothyroidism, type 2 diabetes w/ hyperglycemia & long- term use of insulin, vitamin-D deficiency, & hyperlipidemia/ dyslipidemia. (2) Cellulitis: Code(s): L03.90 - Cellulitis, unspecified Status: Acute Assessment and Plan: * per patient her condition has improved * non painful cellulitis * redness to her right breast and right abdomen as well as her left lower extremity. * warm and reddened left lower leg extending from her ankle up into her calf. The redness stops just prior to her knee. The redness and warmth is circumferential on the entire lower leg. * patient received IV clindamycin while she was inpatient * she will discharge home with Keflex 500 mg p.o. q.6 hours for 14 days * patient denies any reaction to K flex * (past antibx. allergies) according to her [facility] records she has had anaphylaxis in response to Rocephin, redness in response to fluconazole, rash in response to linezolid, renal failure with vancomycin. (3) Acute hypokalemia: Code(s): E87.6 - Hypokalemia Status: Acute Assessment and Plan: * her potassium was 3.1 at admission currently 3.5 on discharge * she has home prescription for 20 mEq of potassium daily but only for 3 days will continue this (4) Hypothyroidism: Code(s): E03.9 - Hypothyroidism, unspecified Status: Chronic Assessment and Plan: * secondary hypothyroidism * she was on 425mcg dailyLevothyroxine at home prior to this admission. 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 * continue anti fungals under folds (7) Type 2 diabetes mellitus: Code(s): E11.9 - Type 2 diabetes mellitus without complications Status: Acute Assessment and Plan: * diagnosed at age 9 * currently gets Lantus 20 units every 12 hours plus aspart NovoLog 12 units b.i.d. patient NovoLog decreased to 10 units b.i.d. to prevent hypoglycemia (8) DONNA treated with BiPAP: Code(s): G47.33 - Obstructive sleep apnea (adult) (pediatric) Status: Acute Assessment and Plan: * not compliant with her BiPAP * 3 L of oxygen at [facility]
--- NOTE | 2020-01-17 11:20 | PM.DS ---
DS: Admitting Diagnosis Admitting Diagnosis Admitting Diagnosis: hypoglycemia DS: Discharge Diagnosis Discharge Diagnosis (1) Hypoglycemia: Code(s): E16.2 - Hypoglycemia, unspecified Status: Acute Assessment and Plan: resolved controlled A1c 8.7 etiology unknown reported that home blood sugar was 60 before admission patient on Lantus 20 units of insulin and NovoLog pen 14 units subcu b.i.d. patient will adjusted patient will discharge with 10 units subcu b.i.d. and follow-up with pyridine operator is Beverley Morse (phone [phone]) at [facility] in [place], [place]. sees Economic Development Director for:pituitary Syeda syndrome, hypokalemia, diabetes insipidus, secondary hypothyroidism, type 2 diabetes w/ hyperglycemia & long-term use of insulin, vitamin-D deficiency, & hyperlipidemia/ dyslipidemia. (2) Cellulitis: Code(s): L03.90 - Cellulitis, unspecified Status: Acute Assessment and Plan: per patient her condition has improved non painful cellulitis redness to her right breast and right abdomen as well as her left lower extremity. warm and reddened left lower leg extending from her ankle up into her calf. The redness stops just prior to her knee. The redness and warmth is circumferential on the entire lower leg. patient received IV clindamycin while she was inpatient she will discharge home with Keflex 500 mg p.o. q.6 hours for 14 days patient denies any reaction to K flex (past antibx. allergies) according to her [facility] records she has had anaphylaxis in response to Rocephin, redness in response to fluconazole, rash in response to linezolid, renal failure with vancomycin. (3) Acute hypokalemia: Code(s): E87.6 - Hypokalemia Status: Acute Assessment and Plan: her potassium was 3.1 at admission currently 3.5 on discharge she has home prescription for 20 mEq of potassium daily but only for 3 days will continue this (4) Hypothyroidism: Code(s): E03.9 - Hypothyroidism, unspecified Status: Chronic Assessment and Plan: secondary hypothyroidism she was on 425mcg dailyLevothyroxine at home prior to this admission. due to a TSH of 0.02 her levothyroxine will be held and she is to follow-up with her pyridine operator in 1 week she was instructed to call her pyridine operator Sunday morning further instructions (5) Cushings syndrome: Code(s): E24.9 - Bayamon's syndrome, unspecified Status: Acute Assessment and Plan: Continue her home medications: Desmopressin, Korlym cortisol and ACTH levels pending follow-up with pyridine operator (6) Morbid (severe) obesity due to excess calories: Code(s): E66.01 - Morbid (severe) obesity due to excess calories Status: Acute Assessment and Plan: Peau d'orange to her breasts, abdomen, and legs as well. continue anti fungals under folds (7) Type 2 diabetes mellitus: Code(s): E11.9 - Type 2 diabetes mellitus without complications Status: Acute Assessment and Plan: diagnosed at age 9 currently gets Lantus 20 units every 12 hours plus aspart NovoLog 12 units b.i.d. patient NovoLog decreased to 10 units b.i.d. to prevent hypoglycemia (8) DONNA treated with BiPAP: Code(s): G47.33 - Obstructive sleep apnea (adult) (pediatric) Status: Acute Assessment and Plan: not compliant with her BiPAP 3 L of oxygen at home prior to this admission so patient is at her baseline O2 requirement no signs or symptoms of dyspnea or respiratory failure at this time patient needs to establish care with a new tractor distributor as soon as possible (9) Depression: Code(s): F32.9 - Major depressive disorder, single episode, unspecified Status: Acute Assessment and Plan: continue home medication DS: Summary Time Spent with Patient Time attestation: Total celina
[2020-01-17 11:41] LABS: Glucose Point of Care 176 (65-105)
--- NOTE | 2020-01-17 12:00 | PC.NURSE ---
Discharge to home via wheel chair, personal items and medications returned to patient, no distress on discharge last blood sugar at [facility] was 176
[2020-01-20 12:17] LABS: Cortisol Baseline 148.6 mcg/dL (***)
[2020-01-22 07:01] LABS: Adrenocorticotropic Hormone 640 pg/mL (6-50)
== END 2020-01-17 12:00 | disposition home or self-care (01) | DRG 638 ==
LOC: CHSED 20:10 → CHS2ND 21:45
PROVIDERS: Family Medicine; Nurse Practitioner; Admitting Provider Emergency Medicine; Emergency Provider Emergency Medicine; Visit Provider Emergency Medicine
DX: E11.649 Type 2 diabetes mellitus with hypoglycemia without coma (principal); L03.311 Cellulitis of abdominal wall; L03.116 Cellulitis of left lower limb; E24.9 Cushing's syndrome, unspecified; E23.0 Hypopituitarism; N61.0 Mastitis without abscess; E87.6 Hypokalemia; I50.9 Heart failure, unspecified; I11.0 Hypertensive heart disease with heart failure; J44.9 Chronic obstructive pulmonary disease, unspecified; D32.9 Benign neoplasm of meninges, unspecified; H49.20 Sixth [abducent] nerve palsy, unspecified eye; E03.9 Hypothyroidism, unspecified; E66.01 Morbid (severe) obesity due to excess calories; G47.33 Obstructive sleep apnea (adult) (pediatric); F31.9 Bipolar disorder, unspecified; Z99.81 Dependence on supplemental oxygen; Z92.3 Personal history of irradiation
CPT/HCPCS: 36415; 80053; 81001; 82024; 82533; 83036; 83605; 83735; 83880; 84443; 85025; 85027; 87040; 87086; 87088; 93005; 96361; 96365; 96366; 96367; 96375; 97161; 99284; 99285; A9270; G0378; J3475; J3480; J7030

== ENCOUNTER 2020-01-31 10:55 | Observation (INO) | payer MEDICARE, MEDICAID, SELFPAY ==
--- NOTE | ~2020-01-31 | XR_ITS ---
XR chest 1V portable 01/31/2020 20:22 Indication: Hypoglycemia. Dyspnea. Procedure: AP portable chest Comparison: Comparison to multiple prior studies sequentially, with oldest reviewed study dated 06/19. Findings: Moderate cardiomegaly. Mild interstitial edema. No pleural effusion or pneumothorax. No acu te osseous abnormality. Impression: 1: Cardiomegaly with interstitial edema. Reviewed, dictated and finalized at location A. Impression: 1: Cardiomegaly with interstitial edema.
[2020-01-31 11:00] VITALS: BP 141/80; PULSE 70; RESP 22; TEMP 36.5; O2SAT 96
[2020-01-31 11:13] LABS: Glucose Point of Care 47 (65-105)
[2020-01-31 11:59] LABS: Basophils Absolute Auto 0.02 K/mm3 (0.00-0.10); Basophils Percent Auto 0.4 % (0.0-1.0); Eosinophils Absolute Auto 0.06 K/mm3 (0.02-0.50); Eosinophils Percent Auto 1.2 % (1.0-6.0); Hematocrit 33.8 % (35.0-49.0); Hemoglobin 9.8 g/dL (12.0-15.0); Immature Granulocyte Absolute 0.06 K/mm3 (0.00-0.00); Immature Granulocyte Percent A 1.2 % (0.0-0.0); Lymphocytes Absolute Auto 0.44 K/mm3 (1.10-4.50); Lymphocytes Percent Auto 8.8 % (18.0-42.0); Mean Corpuscular Hemoglobin 28.8 pg (27.0-31.0); Mean Corpuscular Volume 99.4 fL (78.0-102.0); Mean Platelet Volume 10.5 fl (9.2-11.8); Monocytes Absolute Auto 0.23 K/mm3 (0.10-0.90); Monocytes Percent Auto 4.6 % (2.0-11.0); Neutrophils Absolute Auto 4.2 K/mm3 (1.7-7.2); Neutrophils Percent Auto 83.8 % (50.0-70.0); Platelet Count Result 169 K/mm3 (150-420); Red Cell Distribution Width 16.7 % (11.6-14.4)
[2020-01-31 12:13] LABS: Alanine Aminotransferase 6 U/L (14-59); Albumin Level 3.2 g/dL (3.4-5.0); Alkaline Phosphatase 100 U/L (46-116); Anion Gap 0 mmol/L (8-16); Aspartate Amino Transferase 14 U/L (15-37); Bilirubin,Total 1.3 mg/dL (0.00-1.00); Blood Urea Nitrogen 10 mg/dL (7-18); Calcium 8.6 mg/dL (8.5-10.1); Carbon Dioxide 43 mmol/L (21-32); Chloride 102 mmol/L (98-108); Estimated CRCL calculation 117 ml/min; Estimated Glomerular Filt Rate 56; Osmolality Calculated 296 mOsm/kg (285-295); Potassium 3.2 mmol/L (3.5-5.1); Sodium 145 mmol/L (136-145); Total Protein 6.6 g/dL (6.4-8.2)
[2020-01-31 12:14] LABS: Glucose 41 mg/dL (70-99)
[2020-01-31 12:26] LABS: Glucose Point of Care < 33 (65-105)
[2020-01-31] MEDS: DEXTROSE 50% 25 GM/50 ML SYRINGE IV PUSH ×3 (12:32→19:43)
--- NOTE | 2020-01-31 12:34 | PC.NURSE ---
Pt alert and oriented x 3. sitting in wheelchair speaking with mother and eating meal tray.
[2020-01-31 12:38] VITALS: BP 154/86; PULSE 70; RESP 22; O2SAT 100
--- NOTE | 2020-01-31 12:39 | PC.NURSE ---
Pt requesting to be transfered to [facility]. Pt states that her diabetic doctor is there. Call placed to [facility].
[2020-01-31 12:43] LABS: Thyroid Stimulating Hormone 0.02 uIU/mL (0.36-3.74)
--- NOTE | 2020-01-31 12:45 | PC.NURSE ---
[facility] has no beds at this time and pt will go to ER hold bed on 2nd floor.
--- NOTE | 2020-01-31 12:48 | ED.GENADULT ---
HPI - General Adult General Chief complaint: Unspecified Stated complaint: ambulance History of Present Illness HPI narrative: 24 y.o. with insulin dependent, type 2 DM (dx at 9 y.o.), with diabetes insipidus, [place]'s Disease, hypothyroidism, morbid obesity, OS. Pt. difficult to arouse at approximately 10:15 AM today. Mother obtained blood sugar around 30. After consuming orange juice became fully alert. Pt. had a FBS in the 100s last evening, took Lantus 10 u and Humalog 14 units at 6:30 PM after eating a subway sandwich. Admitted with hypoglycemia and cellulitis of the right breast, abdomen and left lower extremity 01/15 . D.C. the following day after blood sugars normalized. Her Lantus was decreased 50% to 10 units BID with continued Humalog 14 u AC. Blood sugars 3 - 4 x/day since then have been around 100; never below 70 until this AM. Mother states Rosa did not follow up with Dr. Morse because of mother's concern the blood sugar would drop in transit. She was treated for cellulitis of the right breast and abdomen on 01/15. She was d.c. from [facility] on 01/16 on no antibiotics. Pt. states her right breast has become more swollen and tender since over the past 2 weeks, today rating pain #6/10. She denies fevers/chills. Mother requests/pt agrees to be transferred to [facility], where her electro mechanical technician, Dr. Morse, has a clinic. Mother states Rosa has been very weak for 2 weeks, getting up only to chair and back to bed. She's a very difficult assist secondary to morbid obesity. Related Data Home Medications Medication Instructions Recorded Confirmed Korlym 300 mg PO DAILY 06/20/19 01/31/20 Lantus Solostar U-100 Insulin 10 unit SUBCUT BID 06/20/19 01/31/20 albuterol sulfate 2 puff INHALATION Q4-6H PRN 06/20/19 01/31/20 desmopressin 0.1 mg PO BID 06/20/19 01/31/20 ergocalciferol (vitamin D2) 50,000 unit PO 2XW 06/20/19 01/31/20 sumatriptan succinate 25 mg PO PRN PRN 06/20/19 01/31/20 Mirena 1 device INTRAUTERINE ONCE 08/09/19 01/31/20 hydralazine 50 mg PO TID 08/09/19 01/31/20 nifedipine 60 mg PO DAILY 08/09/19 01/31/20 spironolactone 50 mg PO QAM 08/09/19 01/31/20 levothyroxine 125 mcg PO DAILY 01/31/20 01/31/20 levothyroxine 300 mcg PO DAILY 01/31/20 01/31/20 Allergies Allergy/AdvReac Type Severity Reaction Status Date / Time ceftriaxone [From Rocephin] Allergy Severe Other Verified 01/16/20 15:16 linezolid Allergy Unknown Other Verified 01/16/20 15:15 vancomycin Allergy Unknown Other Verified 01/16/20 15:16 fluconazole AdvReac Mild REDNESS Verified 01/16/20 15:14 Review of Systems Constitutional: Comments: feeling weak for the last few weeks. Eyes: Eyes: Denies change in vision and Reports other (eyelids have been swollen for several weeks. ) ENT: Reports vertigo Comments: Intermittent spinning sensation for the last several days. Cardiovascular: Cardiovascular: Denies chest pain and Denies rapid heart rate Respiratory: Respiratory: Denies dyspnea (Has not changed from baseline. ) Gastrointestinal: Comments: Pain under the right breast Genitourinary: Comments: started menstruating today. Last period a long time ago; doesn't remember when. Integumentary/Breasts: Skin/Breast: Reports rash (chronic stasis skin changes lower extremities. ) Neurologic: Comments: Mild global headache today. Psychiatric: Psychiatric: Denies depression Endocrine: Endocrine: Reports fatigue Hematologic/Lymphatic: Hematologic/Lymphatic: Denies easy bleeding Allergic/Immunologic: Allergic/Immunologic: Denies wheezing PMFSH Social History Social History Smoking status: Never smoker Second hand tobacco smoke exposure: Yes Alcohol intake: never Substance use: never Substance use type: marijuana Gender identity (if verbalized by the patient): Female Spiritual care concerns: No Agree to blood products: Yes Exam Narrative: Exam Narrative:
[2020-01-31 12:57] LABS: Glucose Point of Care 39 (65-105)
[2020-01-31] MEDS: DEXTROSE 10% 250 ML 100 ML IV CONT (13:05)
[2020-01-31 13:16] LABS: Glucose Point of Care 33 (65-105)
[2020-01-31] MEDS: CLINDAMYCIN HCL 150 MG CAP 600 MG PO ×2 (13:29→21:25)
[2020-01-31] MEDS: POTASSIUM CHLORIDE 20 MEQ TABLET PO ×2 (13:29→17:57)
[2020-01-31 13:38] LABS: Lactic Acid 1.1 mmol/L (0.4-2.0)
[2020-01-31 13:41] VITALS: BP 167/96; PULSE 67; RESP 22; O2SAT 100
[2020-01-31 13:41] LABS: Glucose 91 mg/dL (70-99)
[2020-01-31 13:46] LABS: Free T3 < 0.50 pg/mL (2.18-3.98); Free T4 Free Thyroxine 0.19 ng/dL (0.76-1.46)
[2020-01-31 13:48] LABS: Glucose Point of Care 48 (65-105)
[2020-01-31 14:10] LABS: Glucose Point of Care 61 (65-105)
[2020-01-31 14:37] LABS: Glucose Point of Care 58 (65-105)
[2020-01-31 14:50] VITALS: BP 152/89; PULSE 66; RESP 22; TEMP 36.6; O2SAT 100
--- NOTE | 2020-01-31 14:52 | PC.NURSE ---
report to chanel dominguez, pt taken to 2nd floor while awaiting bed at [facility].
[2020-01-31 15:44] LABS: Glucose Point of Care 61 (65-105)
--- NOTE | 2020-01-31 16:30 | PC.NURSE ---
Blood sugar check resulted 64. Patient denies any needs at this time.
--- NOTE | 2020-01-31 17:31 | PC.NURSE ---
Dr. Moctezuma speaking with Dr Lee at [facility].
[2020-01-31 17:37] LABS: Glucose Point of Care 64 (65-105)
[2020-01-31] MEDS: DEXTROSE 10% 250 ML 200 ML IV CONT (17:56)
[2020-01-31] MEDS: hydrALAZINE HCL 25 MG TABLET 50 MG PO (17:56)
--- NOTE | 2020-01-31 19:25 | PC.NURSE ---
notified that patient's blood sugar was 43. D10 is running at 200 ml/hr. Juice given. acknowledged blood sugar result and stated he was going to call the specialist at [place].
[2020-01-31 19:30] VITALS: BP 156/75; PULSE 77; RESP 20; TEMP 36.8; O2SAT 100
[2020-01-31 19:33] LABS: Glucose Point of Care 43 (65-105)
[2020-01-31 19:33] LABS: Glucose Point of Care 58 (65-105)
--- NOTE | 2020-01-31 19:47 | PC.NURSE ---
Dr michel speaking with dr Busby, lead recoverer at [facility].
--- NOTE | 2020-01-31 20:05 | PC.NURSE ---
Dr Moctezuma called and gave orders to hold Korylm per pt's endocrine doctor
[2020-01-31 20:09] LABS: Glucose Point of Care 105 (65-105)
[2020-01-31 20:22] LABS: Anion Gap 0 mmol/L (8-16); Blood Urea Nitrogen 12 mg/dL (7-18); Calcium 8.1 mg/dL (8.5-10.1); Carbon Dioxide 43 mmol/L (21-32); Chloride 101 mmol/L (98-108); Estimated CRCL calculation 130 ml/min; Estimated Glomerular Filt Rate > 60; Glucose 111 mg/dL (70-99); Osmolality Calculated 298 mOsm/kg (285-295); Potassium 3.3 mmol/L (3.5-5.1); Sodium 144 mmol/L (136-145)
--- NOTE | 2020-01-31 20:40 | PC.NURSE ---
Dr Moctezuma in with patient
[2020-01-31] MEDS: FUROSEMIDE INJ 40 MG/4 ML VIAL IV PUSH (20:51)
[2020-01-31] MEDS: TOLNAFTATE 1% POWDER 45 GM BTL 1 APPLIC TOPICAL (20:51)
[2020-01-31 21:05] LABS: Glucose Point of Care 80 (65-105)
[2020-01-31 21:42] LABS: BNP 610 pg/mL (0-100)
[2020-01-31 22:01] LABS: Glucose Point of Care 85 (65-105)
[2020-01-31 22:25] LABS: Add Urine Microscopic? YES; Appearance Urine Clear (Clear); Bilirubin Urine Negative (Negative); Blood Urine Negative (Negative); Color Urine Yellow (Yellow); Glucose Urine UA Negative (Negative); Ketones Urine Negative (Negative); Leukocyte Esterase Ur Negative (Negative); Nitrate Urine Negative (Negative); Protein Urine 2+ (Negative); Urobilinogen Urine 0.2 mg/dL (0.2-1.0)
[2020-01-31 22:44] LABS: Bacteria Urine None seen /hpf; Mucus Urine None seen /lpf; RBC Urine None seen /hpf (0-2); Squamous Epithelial Cell Urine Rare /hpf (Few); WBC Urine None seen /hpf (0-3)
[2020-01-31 23:12] LABS: Glucose Point of Care 98 (65-105)
[2020-01-31 23:17] VITALS: BP 145/68; PULSE 79; RESP 20; TEMP 37.1; O2SAT 100
[2020-02-01 00:19] LABS: Glucose Point of Care 95 (65-105)
--- NOTE | 2020-02-01 00:26 | PC.NURSE ---
Dr. Moctezuma notified of pt's blood sugars. New orders received and noted.
--- NOTE | 2020-02-01 01:35 | PC.NURSE ---
Dr. Moctezuma called to get an update on pt's output. New orders received and noted.
[2020-02-01] MEDS: POTASSIUM CHLORIDE 20 MEQ TABLET 40 MEQ PO (01:46)
[2020-02-01] MEDS: FUROSEMIDE INJ 40 MG/4 ML VIAL 20 MG IV PUSH (01:46)
[2020-02-01 01:55] LABS: Glucose Point of Care 118 (65-105)
--- NOTE | 2020-02-01 01:56 | PC.NURSE ---
pt given fruit cup and cottage cheese per request
[2020-02-01 03:58] LABS: Glucose Point of Care 104 (65-105)
[2020-02-01 04:00] VITALS: BP 134/64; PULSE 80; RESP 20; TEMP 37.4; O2SAT 100
[2020-02-01] MEDS: CLINDAMYCIN HCL 150 MG CAP 600 MG PO ×3 (05:47→21:30)
--- NOTE | 2020-02-01 05:52 | PC.NURSE ---
Dr Moctezuma at bedside evaluating pt
[2020-02-01 05:57] LABS: Glucose Point of Care 99 (65-105)
[2020-02-01 06:50] LABS: Basophils Absolute Auto 0.03 K/mm3 (0.00-0.10); Basophils Percent Auto 0.6 % (0.0-1.0); Eosinophils Percent Auto 1.9 % (1.0-6.0); Hematocrit 32.5 % (35.0-49.0); Hemoglobin 9.3 g/dL (12.0-15.0); Immature Granulocyte Absolute 0.03 K/mm3 (0.00-0.00); Immature Granulocyte Percent A 0.6 % (0.0-0.0); Lymphocytes Absolute Auto 0.38 K/mm3 (1.10-4.50); Lymphocytes Percent Auto 7.3 % (18.0-42.0); Mean Corpuscular HGB Conc 28.6 g/dL (32.0-36.0); Mean Corpuscular Hemoglobin 28.9 pg (27.0-31.0); Mean Corpuscular Volume 100.9 fL (78.0-102.0); Mean Platelet Volume 10.9 fl (9.2-11.8); Monocytes Absolute Auto 0.28 K/mm3 (0.10-0.90); Monocytes Percent Auto 5.4 % (2.0-11.0); Neutrophils Absolute Auto 4.4 K/mm3 (1.7-7.2); Neutrophils Percent Auto 84.2 % (50.0-70.0); Platelet Count Result 171 K/mm3 (150-420); Red Blood Count 3.22 M/mm3 (4.20-5.40); Red Cell Distribution Width 16.8 % (11.6-14.4); White Blood Count 5.2 K/mm3 (4.8-10.8)
[2020-02-01 06:58] LABS: Anion Gap -2 mmol/L (8-16); Blood Urea Nitrogen 12 mg/dL (7-18); Calcium 7.9 mg/dL (8.5-10.1); Carbon Dioxide 44 mmol/L (21-32); Chloride 104 mmol/L (98-108); Estimated CRCL calculation 127 ml/min; Estimated Glomerular Filt Rate > 60; Glucose 93 mg/dL (70-99); Osmolality Calculated 301 mOsm/kg (285-295); Potassium 3.7 mmol/L (3.5-5.1); Sodium 146 mmol/L (136-145)
[2020-02-01 07:05] LABS: BNP 545 pg/mL (0-100)
--- NOTE | 2020-02-01 07:15 | PC.NURSE ---
Decision made by ERP to admit pt. for obs. Call placed to floor to [facility] charge nurse of change in POC. Faye notified on cancellation of transfer.
[2020-02-01 07:30] VITALS: BMI 77.3
--- NOTE | 2020-02-01 07:30 | ADMGEN ---
This patient, Rosa Sullivan, was admitted to 2nd Floor Room 226-2. Patient/family oriented to hospital policies and general routines including ID bracelet, bed and alarms, visiting hours, pain management, procedures, bathroom and other care routines, personal items, smoking policy, room service/diet, and visiting hours. Valuables list has been completed. Information on how to activate the Rapid Response Team has been discussed. Patient/Family are encouraged to report perceived risks to care and to ask questions if they do not understand what they are told or what they should do.
[2020-02-01 07:40] VITALS: BP 136/76; PULSE 74; RESP 20; TEMP 37.3; O2SAT 98
[2020-02-01 07:41] VITALS: PULSE 74; RESP 20; O2SAT 98
[2020-02-01 08:12] LABS: Glucose Point of Care 88 (65-105)
[2020-02-01] MEDS: LEVOTHYROXINE SODIUM 100 MCG TABLET 300 MCG PO (10:13)
[2020-02-01] MEDS: DESMOPRESSIN ACETATE 0.1 MG TABLET PO ×2 (10:13→16:48)
[2020-02-01] MEDS: hydrALAZINE HCL 25 MG TABLET 50 MG PO ×3 (10:14→16:51)
[2020-02-01] MEDS: SPIRONOLACTONE 25 MG TABLET 50 MG PO (10:14)
[2020-02-01] MEDS: NIFEdipine 30 MG TAB.ER.24 60 MG PO (10:14)
[2020-02-01] MEDS: ERGOCALCIFEROL 50,000 UNIT CAPSULE 50000 UNITS PO (10:20)
[2020-02-01] MEDS: ENOXAPARIN 40 MG/0.4 ML SYRINGE SUB-Q (10:20)
[2020-02-01 10:32] LABS: Glucose Point of Care 90 (65-105)
--- NOTE | 2020-02-01 11:25 | PM.IMHP ---
H&P: HPI History of Present Illness Date/Time: 02/01/20 11:25 Chief complaint: ambulance Narrative: Rosa Sullivan is a 24 year old female that presented to [facility] with low blood sugar and swelling and edema to her left breast. Patient has an extensive past history of acute kidney injury, bipolar, congestive heart failure, COPD, diabetes, hypertension, hypothyroidism, [place]'s and oxygen dependent. Patient was recently admitted to the hospital on 01/16/2020 for cellulitis and hypoglycemia. During that discharge patient's insulin was adjusted, antibiotics for her cellulitis was not ordered. Yesterday it was noted by the patient's mother that she was hard to arouse and that her sugar was 30. According to the patient and family member patient has not had any episodes of hypoglycemia since last admission. Patient was instructed to follow-up with her regulatory process manager Dr. Morse immediately after discharge. Patient did not follow-up with Dr. Morse because she was afraid that her sugar would drop in transit to the appointment. Originally patient was to transfer to [place] with her regulatory process manager due to her uncontrolled hypoglycemic episode. Our ED doctor called and speak to the regulatory process manager who suggested that patient's Syeda disease medication could be the possible cause of her hypoglycemic episode. Patient's Korlym was DC'd. Patient blood sugar was controlled once this medication was stopped. She was not discharged to [facility] at this time. I will call her regulatory process manager Dr. Morse in the a.m. to determine whether this patient will discharge home with and adjust this medication. It was noted by patient mother that she remained weak and will not be able to return home, her mother is requesting that she be discharged to a rehab. Patient's vital signs 134/64, 86, 20, 99.4, 100% on 3 L nasal cannula, chest x-ray did indicate edema patient BNP 610 on admission did receive 40 mEq of Lasix currently BNP is at 545. Patient's free T3 and free T4 are currently low. ED doctor did discuss this with patient patient noted that she had discontinued her use of her levothyroxine 425 mg daily. We will restart her levothyroxine at 425 mg daily. Patient is being readmitted for cellulitis and hyperglycemia. She does complain of pain to her left breast area. The patient denies SOB, CP, palpitation, extremity numbness, lightheadedness, dizziness, constipation, diarrhea, chills, or fever. Review of Systems Review of Systems: Narrative: CONSTITUTIONAL: Denies fever, chills, sweats. EYES: Denies visual changes, redness, discharge. ENT: Denies rhinorrhea, congestion, sore throat, otalgia. CARDIOVASCULAR: Denies chest pain, palpitations, edema. RESPIRATORY: Denies dyspnea, wheezing, cough GASTROINTESTINAL: Denies abdominal pain, nausea, vomiting, diarrhea. GENITOURINARY: Denies dysuria, hematuria, abnormal discharge SKIN: Redness , swelling and pain to the left breast and abdomen area MUSCULOSKELETAL: Denies acute back pain, joint pain, or myalgia. NEUROLOGIC: Denies numbness, or focal weakness. PSYCHIATRIC: Denies anxiety or depression. [facility] Social History Social History Smoking status: Never smoker Second hand tobacco smoke exposure: Yes Alcohol intake: never Substance use: never Substance use type: marijuana Gender identity (if verbalized by the patient): Female Spiritual care concerns: No Agree to blood products: Yes Meds Home Medications and Allergies Home Medications Medication Instructions Recorded Confirmed Type Korlym 300 mg PO DAILY 06/20/19 01/31/20 History Lantus Solostar U-100 Insulin 10 unit SUBCUT BID 06/20/19 01/31/20 History albuterol sulfate 2 puff INHALATION Q4-6H PRN 06/20/19 01/31/20 History desmopressin 0.1 mg PO BID 06/20/19 01/31/20 History ergocalciferol (vitamin D2) 50,000 unit PO 2XW 06/20/19 01/31/20 History sumatriptan succinate 25
[2020-02-01 12:00] VITALS: PULSE 72; RESP 20; O2SAT 97
[2020-02-01 12:02] LABS: Glucose Point of Care 67 (65-105)
[2020-02-01 14:44] LABS: Glucose Point of Care 93 (65-105)
[2020-02-01 15:45] VITALS: BP 105/53; PULSE 76; RESP 20; TEMP 37; O2SAT 98
[2020-02-01 17:01] LABS: Glucose Point of Care 105 (65-105)
--- NOTE | 2020-02-01 18:35 | PC.NURSE ---
Patient resting quietly in bed with hob elevated. Patient denies any needs. Call light at side.
[2020-02-01 20:00] VITALS: BP 128/70; PULSE 79; RESP 20; TEMP 37.4; O2SAT 98
[2020-02-01 20:00] LABS: Glucose Point of Care 139 (65-105)
[2020-02-01] MEDS: TOLNAFTATE 1% POWDER 45 GM BTL 1 APPLIC TOPICAL (21:30)
[2020-02-01 21:37] LABS: Glucose Point of Care 156 (65-105)
--- NOTE | 2020-02-01 22:17 | PC.NURSE ---
pt samaniego catheter is draining red colored urine, stat loc is no longer stuck to skin, notified set up and charger, flushed catheter with 20ml sterile water, no clots present at this time. pt denies any pain with catheter. benson care provided new stat loc applied
[2020-02-02] VITALS: BP 92/46; PULSE 80; RESP 20; TEMP 37.5; O2SAT 97
[2020-02-02 00:25] LABS: Glucose Point of Care 150 (65-105)
--- NOTE | 2020-02-02 01:44 | PC.NURSE ---
Dr. Nevarez notified of pt's bloody drainage from the samaniego catheter. No new orders at this time.
[2020-02-02 01:49] LABS: Glucose Point of Care 167 (65-105)
[2020-02-02 03:45] VITALS: BP 120/73; PULSE 77; RESP 18; TEMP 37.3; O2SAT 95
[2020-02-02 03:48] LABS: Glucose Point of Care 165 (65-105)
[2020-02-02] MEDS: LEVOTHYROXINE SODIUM 100 MCG TABLET 300 MCG PO (05:30)
[2020-02-02] MEDS: CLINDAMYCIN HCL 150 MG CAP 600 MG PO ×3 (05:30→21:01)
[2020-02-02] MEDS: LEVOTHYROXINE SODIUM 100 MCG, LEVOTHYROXINE SODIUM 25 MCG 125 MCG PO (05:31)
[2020-02-02 05:33] LABS: Glucose Point of Care 151 (65-105)
[2020-02-02 06:03] LABS: Hematocrit 28.9 % (35.0-49.0); Hemoglobin 8.2 g/dL (12.0-15.0); Mean Corpuscular HGB Conc 28.4 g/dL (32.0-36.0); Mean Corpuscular Hemoglobin 28.8 pg (27.0-31.0); Mean Corpuscular Volume 101.4 fL (78.0-102.0); Mean Platelet Volume 11.2 fl (9.2-11.8); Platelet Count Result 151 K/mm3 (150-420); Red Blood Count 2.85 M/mm3 (4.20-5.40); Red Cell Distribution Width 17.1 % (11.6-14.4); White Blood Count 4.6 K/mm3 (4.8-10.8)
[2020-02-02 06:23] LABS: Lactic Acid Reflex 0.6 mmol/L (0.4-2.0)
[2020-02-02 06:32] LABS: Alanine Aminotransferase 7 U/L (14-59); Alkaline Phosphatase 88 U/L (46-116); Anion Gap -2 mmol/L (8-16); Aspartate Amino Transferase 17 U/L (15-37); Bilirubin,Total 1.1 mg/dL (0.00-1.00); Blood Urea Nitrogen 14 mg/dL (7-18); CRP 1.6 mg/dL (0.0-0.9); Calcium 7.6 mg/dL (8.5-10.1); Carbon Dioxide 42 mmol/L (21-32); Chloride 102 mmol/L (98-108); Estimated CRCL calculation 102 ml/min; Estimated Glomerular Filt Rate 47; Glucose 145 mg/dL (70-99); Magnesium 1.7 mg/dL (1.8-2.4); Osmolality Calculated 297 mOsm/kg (285-295); Sodium 142 mmol/L (136-145); Total Protein 5.8 g/dL (6.4-8.2)
[2020-02-02 08:00] VITALS: BP 117/85; PULSE 74; RESP 16; TEMP 37.2; O2SAT 96
[2020-02-02 08:33] LABS: Glucose Point of Care 163 (65-105)
[2020-02-02] MEDS: DESMOPRESSIN ACETATE 0.1 MG TABLET PO ×2 (09:15→17:21)
[2020-02-02] MEDS: hydrALAZINE HCL 25 MG TABLET 50 MG PO ×3 (09:15→17:21)
[2020-02-02] MEDS: SPIRONOLACTONE 25 MG TABLET 50 MG PO (09:15)
[2020-02-02] MEDS: NIFEdipine 30 MG TAB.ER.24 60 MG PO (09:15)
[2020-02-02] MEDS: ENOXAPARIN 40 MG/0.4 ML SYRINGE SUB-Q (09:16)
[2020-02-02] MEDS: TOLNAFTATE 1% POWDER 45 GM BTL 1 APPLIC TOPICAL ×2 (09:16→21:03)
[2020-02-02 09:37] LABS: BNP 255 pg/mL (0-100)
[2020-02-02 11:57] LABS: Glucose Point of Care 158 (65-105)
[2020-02-02 12:00] VITALS: BP 150/77; PULSE 78; RESP 18; TEMP 37.7; O2SAT 96
--- NOTE | 2020-02-02 14:04 | WPDPN ---
Progress Note: A&P Assessment and Plan (1) Cellulitis of right breast: Code(s): N61.0 - Mastitis without abscess <ALEXANDREA Robertson - Last Filed: 02/02/20 14:10> Status: Acute <ALEXANDREA Robertson - Last Filed: 02/02/20 14:10> Assessment and Plan: Missed therapy Patient started on clindamycin 600 mg every 8 hours day 3 We will continue to monitor condition (past antibx. allergies) according to her [facility] records she has had anaphylaxis in response to Rocephin, redness in response to fluconazole, rash in response to linezolid, renal failure with vancomycin. <ALEXANDREA Robertson - Last Filed: 02/02/20 14:10> (2) Hypoglycemia: Code(s): E16.2 - Hypoglycemia, unspecified <ALEXANDREA Robertson - Last Filed: 02/02/20 14:10> Status: Acute <ALEXANDREA Robertson - Last Filed: 02/02/20 14:10> Assessment and Plan: Secondary to medication This admission patient blood sugar has ranged from less than 158-165 Patient sack filler was contacted by our ED who suggested that we discontinue the use of her Kimball's medication Korlym, once medication was DC'd the patient no longer had episodes of hypoglycemia. waiting for call from patient's sack filler Continue blood sugars every 2 hours for now. Adjust medication as needed <ALEXANDREA Robertson - Last Filed: 02/02/20 14:10> (3) Congestive heart failure: Qualifiers: Heart failure chronicity: acute on chronic Heart failure type: diastolic Qualified Code(s): I50.33 - Acute on chronic diastolic (congestive) heart failure <ALEXANDREA Robertson - Last Filed: 02/02/20 14:10> Code(s): I50.9 - Heart failure, unspecified <ALEXANDREA Robertson - Last Filed: 02/02/20 14:10> Status: Acute <ALEXANDREA Robertson - Last Filed: 02/02/20 14:10> Assessment and Plan: Patient BMP and admission 610, Lasix 40 rod equivalents given one-time ED currently 545 ? CXR indicate edema ? continue weight patient daily ? I & O reviewe ? Continue oxygen continuously ? Continue spironolactone 50 mg p.o. every morning ? CHF education <ALEXANDREA Robertson - Last Filed: 02/02/20 14:10> (4) Hypothyroidism: Qualifiers: Hypothyroidism type: unspecified Qualified Code(s): E03.9 - Hypothyroidism, unspecified <ALEXANDREA Robertson - Last Filed: 02/02/20 14:10> Code(s): E03.9 - Hypothyroidism, unspecified <ALEXANDREA Robertson - Last Filed: 02/02/20 14:10> Status: Acute <ALEXANDREA Robertson - Last Filed: 02/02/20 14:10> Assessment and Plan: ? continue Synthroid and 425 daily ? Patient discontinued use of Synthroid on her own She will have to follow-up with her primary care physician for repeat TSH <ALEXANDREA Robertson - Last Filed: 02/02/20 14:10> (5) Weakness: Code(s): R53.1 - Weakness <ALEXANDREA Robertson - Last Filed: 02/02/20 14:10> Status: Acute <ALEXANDREA Robertson - Last Filed: 02/02/20 14:10> Assessment and Plan: ? Exhibit tolerance during physical activity as evidenced by a normal fluctuation of vital signs during physical activity. ? Patient will be ability to perform required activities of daily living. ? Provide appropriate nutrition for healing and strength. ? Use appropriate to prevent falls. ? Continue physical therapy/occupational therapy. Patient was discharged to a rehab <ALEXANDREA Robertson - Last Filed: 02/02/20 14:10> (6) Type 2 diabetes mellitus: Code(s): E11.9 - Type 2 diabetes mellitus without complications <ALEXANDREA Robertson - Last Filed: 02/02/20 14:10> Status: Acute <ALEXANDREA Robertson - Last Filed: 02/02/20 14:10> Assessment and Plan: Refer to hypoglycemia Patient takes NovoLog pen 10 units subcu twice daily, and Lantus 10 units subcu twice d
[2020-02-02 16:00] VITALS: BP 115/56; PULSE 76; RESP 18; TEMP 37.6; O2SAT 94
[2020-02-02 16:16] LABS: SARS-CoV-2 RNA PCR Negative
[2020-02-02 17:10] LABS: Glucose Point of Care 204 (65-105)
--- NOTE | 2020-02-02 18:39 | PC.NURSE ---
Notified Dr. Garg of preliminary Blood Culture results and of Todays I&O count. Awaiting further orders.
[2020-02-02 20:00] VITALS: BP 103/63; PULSE 77; RESP 20; TEMP 36.8; O2SAT 94
[2020-02-02] MEDS: traZODone HCL 50 MG TABLET PO (21:04)
[2020-02-02 21:22] LABS: Glucose Point of Care 200 (65-105)
[2020-02-03] VITALS: BP 116/68; PULSE 73; RESP 18; TEMP 37; O2SAT 93
[2020-02-03 05:37] LABS: Hematocrit 28.4 % (35.0-49.0); Hemoglobin 8.3 g/dL (12.0-15.0); Mean Corpuscular HGB Conc 29.2 g/dL (32.0-36.0); Mean Corpuscular Hemoglobin 29.6 pg (27.0-31.0); Mean Corpuscular Volume 101.4 fL (78.0-102.0); Mean Platelet Volume 10.3 fl (9.2-11.8); Platelet Count Result 129 K/mm3 (150-420); Red Cell Distribution Width 17.1 % (11.6-14.4); White Blood Count 4.6 K/mm3 (4.8-10.8)
[2020-02-03 06:01] LABS: Alanine Aminotransferase 11 U/L (14-59); Albumin Level 3.3 g/dL (3.4-5.0); Alkaline Phosphatase 97 U/L (46-116); Anion Gap 3 mmol/L (8-16); Aspartate Amino Transferase 18 U/L (15-37); Bilirubin,Total 1.3 mg/dL (0.00-1.00); Blood Urea Nitrogen 15 mg/dL (7-18); Calcium 7.9 mg/dL (8.5-10.1); Carbon Dioxide 40 mmol/L (21-32); Chloride 99 mmol/L (98-108); Estimated CRCL calculation 91 ml/min; Estimated Glomerular Filt Rate 41; Glucose 213 mg/dL (70-99); Osmolality Calculated 300 mOsm/kg (285-295); Potassium 3.9 mmol/L (3.5-5.1); Sodium 142 mmol/L (136-145); Total Protein 6.6 g/dL (6.4-8.2)
[2020-02-03] MEDS: CLINDAMYCIN HCL 150 MG CAP 600 MG PO (06:10)
[2020-02-03] MEDS: LEVOTHYROXINE SODIUM 100 MCG, LEVOTHYROXINE SODIUM 25 MCG 125 MCG PO (06:10)
[2020-02-03] MEDS: LEVOTHYROXINE SODIUM 100 MCG TABLET 300 MCG PO (06:13)
[2020-02-03 08:00] VITALS: BP 138/76; PULSE 70; RESP 16; TEMP 36.6; O2SAT 94
[2020-02-03 08:26] LABS: Glucose Point of Care 214 (65-105)
[2020-02-03 10:28] LABS: BNP 320 pg/mL (0-100)
[2020-02-03] MEDS: hydrALAZINE HCL 25 MG TABLET 50 MG PO ×3 (10:37→17:09)
[2020-02-03] MEDS: NIFEdipine 30 MG TAB.ER.24 60 MG PO (10:37)
[2020-02-03] MEDS: DESMOPRESSIN ACETATE 0.1 MG TABLET PO (10:37)
[2020-02-03] MEDS: ENOXAPARIN 40 MG/0.4 ML SYRINGE SUB-Q (10:38)
[2020-02-03] MEDS: SPIRONOLACTONE 25 MG TABLET 50 MG PO (10:38)
[2020-02-03] MEDS: TOLNAFTATE 1% POWDER 45 GM BTL 1 APPLIC TOPICAL (10:39)
[2020-02-03 11:55] LABS: Glucose Point of Care 223 (65-105)
[2020-02-03 12:00] VITALS: BP 138/76
[2020-02-03 13:30] LABS: Add Urine Microscopic? YES; Appearance Urine Cloudy (Clear); Bilirubin Urine Negative (Negative); Blood Urine 3+ (Negative); Color Urine Red (Yellow); Glucose Urine UA Trace (Negative); Ketones Urine Trace (Negative); Leukocyte Esterase Ur 1+ LEU/UL (Negative); Nitrate Urine Positive (Negative); Protein Urine 3+ (Negative); Specific Grav Ur 1.025 (1.010-1.020); pH Urine 6.5 (5.0-8.0)
[2020-02-03 13:36] LABS: RBC Urine >75 /hpf (0-2); Squamous Epithelial Cell Urine Rare /hpf (Few)
[2020-02-03 13:37] LABS: Bacteria Urine 1+ /hpf
--- NOTE | 2020-02-03 13:43 | PM.DS ---
DS: Admitting Diagnosis Admitting Diagnosis Admitting Diagnosis: HYPOGLYCEMIA DS: Discharge Diagnosis Discharge Diagnosis (1) Cellulitis of right breast: Code(s): N61.0 - Mastitis without abscess Status: Acute Assessment and Plan: Missed therapy Patient started on clindamycin 600 mg . antibiotics changed to Bactrim q.12 hours due to coag-negative Streptococcus growth in the blood cultures (past antibx. allergies) according to her [facility] records she has had anaphylaxis in response to Rocephin, redness in response to fluconazole, rash in response to linezolid, renal failure with vancomycin. (2) Hypoglycemia: Code(s): E16.2 - Hypoglycemia, unspecified Status: Acute Assessment and Plan: Secondary to medication blood sugar less than 300 Patient sterilization specialist was contacted by our ED who suggested that we discontinue the use of her Chilo's medication Korlym, once medication was DC'd the patient no longer had episodes of hypoglycemia. I have attempted contact her sterilization specialist before discharge to determine whether not she will discharge on the korlym. awaiting call back waiting for call from patient's sterilization specialist (3) Congestive heart failure: Qualifiers: Heart failure chronicity: acute on chronic Heart failure type: diastolic Qualified Code(s): I50.33 - Acute on chronic diastolic (congestive) heart failure Code(s): I50.9 - Heart failure, unspecified Status: Acute Assessment and Plan: Patient BMP and admission 610, Lasix 40 rod equivalents given one-time ED currently 545 today 320 ? CXR indicate edema ? continue weight patient daily ? I & O reviewed ? Continue oxygen continuously ? Continue spironolactone 50 mg p.o. every morning ? CHF education (4) Hypothyroidism: Qualifiers: Hypothyroidism type: unspecified Qualified Code(s): E03.9 - Hypothyroidism, unspecified Code(s): E03.9 - Hypothyroidism, unspecified Status: Acute Assessment and Plan: ? continue Synthroid and 425 daily ? Patient discontinued use of Synthroid on her own She will have to follow-up with her primary care physician for repeat TSH (5) Weakness: Code(s): R53.1 - Weakness Status: Acute Assessment and Plan: ? Exhibit tolerance during physical activity as evidenced by a normal fluctuation of vital signs during physical activity. ? Patient will be ability to perform required activities of daily living. ? Provide appropriate nutrition for healing and strength. ? Use appropriate to prevent falls. ? Continue physical therapy/occupational therapy. Patient was discharged to a rehab (6) Type 2 diabetes mellitus: Code(s): E11.9 - Type 2 diabetes mellitus without complications Status: Acute Assessment and Plan: Refer to hypoglycemia Patient takes NovoLog pen 10 units subcu twice daily, and Lantus 10 units subcu twice daily Patient will have to follow with her sterilization specialist Dr. 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 to determine whether the medication will be discontinued or adjusted (9) Morbid (severe) obesity due to excess calories: Code(s): E66.01 - Morbid (severe) obesity due to excess calories Status: Acute Assessment and Plan: [place]au d'orange to her breasts, abdomen, and legs
[2020-02-03 16:00] VITALS: BP 130/72; PULSE 74; RESP 18; TEMP 36.6; O2SAT 94
--- NOTE | 2020-02-03 16:00 | PC.NURSE ---
Contacted [facility] and [facility], both services do not have Rigs avaliable for transfer at this time. [facility] contacted, able to transfer patient. Will be calling back with time able to transfer patient.
--- NOTE | 2020-02-03 16:29 | PC.NURSE ---
[facility] called back and informed that they are not able to transfer patient.
--- NOTE | 2020-02-03 16:35 | PC.NURSE ---
[facility] contacted about transporting patient. They are unable to provide transport.
--- NOTE | 2020-02-03 17:00 | PC.NURSE ---
Called [facility] back, stated they could have a rig available in possibly 30 minutes to transfer patient.
[2020-02-03 17:16] LABS: Glucose Point of Care 237 (65-105)
--- NOTE | 2020-02-03 18:35 | PC.NURSE ---
1430 [facility]. urine remains red with sm clots. encouraged to do for self refuseto get up into recliner. dozes in and out.
--- NOTE | 2020-02-03 19:14 | PC.NURSE ---
1900 dc per tiarra amb to [facility] in [place]. danette remains red.
== END 2020-02-03 19:00 ==
LOC: CHSED 10:59 → CHS2ND 15:20 → CHSED 02-01 07:18 → CHS2ND 02-01 07:20
PROVIDERS: Nurse Practitioner; Admitting Provider Emergency Medicine; Emergency Provider Family Medicine; Visit Provider Emergency Medicine
DX: E11.649 Type 2 diabetes mellitus with hypoglycemia without coma (principal); N61.0 Mastitis without abscess; I11.0 Hypertensive heart disease with heart failure; I50.33 Acute on chronic diastolic (congestive) heart failure; E03.9 Hypothyroidism, unspecified; J44.9 Chronic obstructive pulmonary disease, unspecified; E24.9 Cushing's syndrome, unspecified; F31.9 Bipolar disorder, unspecified; E66.01 Morbid (severe) obesity due to excess calories; Z99.81 Dependence on supplemental oxygen; Z79.4 Long term (current) use of insulin; Z20.828 Contact with and (suspected) exposure to other viral communicable diseases
CPT/HCPCS: 36415; 71045; 80048; 80053; 81001; 82947; 82948; 83036; 83605; 83735; 83880; 84439; 84443; 84481; 85025; 85027; 86140; 87040; 87077; 87086; 87088; 87186; 87635; 96365; 96366; 96372; 96375; 96376; 97161; 97166; 99283; 99285; A9270; C9803; G0378; J1650; J1940; U0003

== ENCOUNTER 2020-03-01 19:23 | Emergency (ER) | payer MEDICARE, MEDICAID, SELFPAY ==
--- NOTE | ~2020-03-01 | XR_ITS ---
EXAMINATION: XR tibia fibula LT 2V DATE: 03/01/2020 20:23 INDICATION: Left lower leg pain after slipping out of a chair TECHNIQUE: Anteroposterior and lateral views of the left tibia and fibula were obtained on overlappin g proximal and distal images. COMPARISON: None. FINDINGS: Alignment is normal. No fracture. The proximal most tibia and fibula are however obscured on the fron dalia projection due to patient body habitus and underpenetration. The profiled joint spaces are unrema rkable. Soft tissue swelling with subcutaneous edema throughout the lower leg. There are also dystrop hic calcification in the subcutaneous tissues which may be related to chronic venous stasis. IMPRESSION: 1. No acute osseous abnormality. The proximal most tibia and fibula are poorly visualized on the fron dalia projection. Reviewed, dictated and finalized at location A. IMPRESSION: 1. No acute osseous abnormality. The proximal most tibia and fibula are poorly visualized on the frontal projection.
--- NOTE | 2020-03-01 19:34 | ED.GENADULT ---
HPI - General Adult General Chief complaint: Extremity Injury, Lower Stated complaint: AMB Time Seen by Provider: 03/01/20 19:25 History of Present Illness HPI narrative: 24-year-old female patient is brought by EMS to the ER for evaluation of left lower leg pain. The patient apparently has morbid obesity and is here primarily because she slid out of her chair twice today and was unable to get up and into the chair again. The EMS had helped her with lift assist 1st time and the 2nd time they decided to bring her in. Patient denies any pain to the foot or thigh or knee area. Patient states that she is expected to start physical therapy from tomorrow after a home visit by the physical therapist. She states that she can usually ambulate at home and it usually does so from the bed to the chair and to the bathroom. Patient lives with her mother Related Data Home Medications Medication Instructions Recorded Confirmed Korlym 300 mg PO DAILY 06/20/19 01/31/20 Lantus Solostar U-100 Insulin 10 unit SUBCUT BID 06/20/19 01/31/20 albuterol sulfate 2 puff INHALATION Q4-6H PRN 06/20/19 01/31/20 desmopressin 0.1 mg PO BID 06/20/19 01/31/20 ergocalciferol (vitamin D2) 50,000 unit PO 2XW 06/20/19 01/31/20 sumatriptan succinate 25 mg PO PRN PRN 06/20/19 01/31/20 Mirena 1 device INTRAUTERINE ONCE 08/09/19 01/31/20 hydralazine 50 mg PO TID 08/09/19 01/31/20 nifedipine 60 mg PO DAILY 08/09/19 01/31/20 spironolactone 50 mg PO QAM 08/09/19 01/31/20 levothyroxine 125 mcg PO DAILY 01/31/20 01/31/20 levothyroxine 300 mcg PO DAILY 01/31/20 01/31/20 Allergies Allergy/AdvReac Type Severity Reaction Status Date / Time ceftriaxone [From Rocephin] Allergy Severe Other Verified 03/01/20 19:56 linezolid Allergy Unknown Other Verified 03/01/20 19:56 vancomycin Allergy Unknown Other Verified 03/01/20 19:56 fluconazole AdvReac Mild REDNESS Verified 03/01/20 19:56 Review of Systems Review of Systems: All systems reviewed & are unremarkable except as noted in HPI and below PMFSH Past Medical History Medical History SRIDHAR (acute kidney injury) Vanc Aspiration pneumonia Bipolar 1 disorder CHF (congestive heart failure) COPD (chronic obstructive pulmonary disease) Cranial nerve palsy 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 Hemangioma Hypertension Hypopituitarism Hypothyroidism 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 Lymphedema of both lower extremities Migraine Necrotizing fasciitis Obesity On home oxygen therapy Osteomyelitis right leg Panniculitis Pituitary adenoma Radiotherapy 2009 Type 2 diabetes mellitus Surgical History Surgical History History of abdominal surgery Monsectomy per patient History of hypophysectomy x 2 History of surgical removal of pituitary gland 2017 in to 2017, partial resection of pituitary gland S/P panniculectomy status post salvage panniculectomy/monsectomy April 05, 2015 S/P tonsillectomy and adenoidectomy Status post incision and drainage Right leg abscess and osteomyelitis Family History Family History Mother Cerebrovascular accident Father Diabetes mellitus Social History Social History Smoking status: Never smoker Second hand tobacco smoke exposure: Yes Alcohol intake: never Substance use: never Substance use type: marijuana Gender identity (if verbalized by the patient): Female Spiritual care concerns: No Agree to blood products: Yes Exam Const: General: no acute distress and alert Nutritional Appearance: obese ( patient is morbidly obese) Orientation/consciousness: patient oriented x3 HENMT: Head: normal to inspection Eyes: Pupils: Equal, round and reactive pupils present EOM: EOMs intact bilaterally Neck: Neck:
[2020-03-01 19:45] VITALS: BP 177/95; PULSE 88; RESP 20; TEMP 37.1; O2SAT 100
[2020-03-01 21:20] VITALS: BP 185/90; PULSE 97; RESP 20; O2SAT 100
== END 2020-03-01 21:25 | disposition home or self-care (01) ==
PROVIDERS: Emergency Provider Emergency Medicine
DX: M79.662 Pain in left lower leg (principal); E66.9 Obesity, unspecified
CPT/HCPCS: 73590; 99282; 99283